=== PATIENT | male | born 1965 | race Caucasian/White ===

== ENCOUNTER 2020-02-14 11:32 | Emergency (ER) | payer MEDICARE, MEDICAID ==
[~2020-02-14] VITALS: Ht 177.8 cm; Wt 92.0 kg
[2020-02-14] MEDS ORDERED: HYDROcodone/acetaminophen 5mg/325mg tablet PO ONE (14:05)
[2020-02-14 14:16] LABS: BASOPHILS % (AUTO) 0.5 % (0-1); EOSINOPHILS % (AUTO) 0.7 % (0-6); HEMATOCRIT 24.4 % (42.0-52.0); HEMOGLOBIN 8.2 g/dl (14.0-17.9); LYMPHOCYTES # (AUTO) 0.8 X10'3 (1.1-4.8); MEAN CORPUSCULAR HEMOGLOBIN 33.3 PG (27.0-31.0); MEAN CORPUSCULAR HGB CONC 33.8 g/dL (33.0-36.5); MEAN CORPUSCULAR VOLUME 98.6 FL (78-98); MEAN PLATELET VOLUME 6.9 FL (7.4-10.4); MONOCYTES # (AUTO) 0.7 X10'3 (0-0.9); MONOCYTES % (AUTO) 11.4 % (2-12); NEUTROPHILS # (AUTO) 4.8 X10'3 (1.8-7.7); NEUTROPHILS % (AUTO) 74.4 % (42-75); PLATELET COUNT 266 X10'3 (140-440); RED BLOOD COUNT 2.48 X10'6 (4.70-6.10); RED CELL DISTRIBUTION WIDTH 14.8 % (11.5-14.5); WHITE BLOOD COUNT 6.5 X10'3 (4.5-11.0)
[2020-02-14 14:38] LABS: ALANINE AMINOTRANSFERASE 27 U/L (12-78); ALBUMIN 2.9 G/DL (3.4-5.0); ALBUMIN/GLOBULIN RATIO 0.8 (1.1-1.5); ALKALINE PHOSPHATASE 75 IU/L (46-116); ANION GAP 12 (8-16); ASPARTATE AMINO TRANSFERASE 17 U/L (10-37); BILIRUBIN,TOTAL 1.1 MG/DL (0.1-1.0); BLOOD UREA NITROGEN 57 MG/DL (7-18); BUN/CREATININE RATIO 6.4 (5.4-32.0); CALCIUM 9.1 MG/DL (8.5-10.1); CHLORIDE 104 MMOL/L (99-107); CREATININE 8.85 MG/DL (0.60-1.10); GLUCOSE 86 MG/DL (70-104); POTASSIUM 3.6 MMOL/L (3.5-5.1); SODIUM 140 MMOL/L (135-145); TOTAL CARBON DIOXIDE 24.3 MMOL/L (24-32); TOTAL PROTEIN 6.7 G/DL (6.4-8.2); eGFR 6 ML/MIN
[2020-02-14] MEDS ORDERED: HYDR-4383 PO (16:01)
[2020-02-14 16:26] VITALS: BP 148/103
== END 2020-02-14 16:10 | disposition home or self-care (01) ==
LOC: ER 11:34
DX: S70.12XA Contusion of left thigh, initial encounter (principal); I48.91 Unspecified atrial fibrillation; Z88.0 Allergy status to penicillin; Z79.899 Other long term (current) drug therapy; X58.XXXA Exposure to other specified factors, initial encounter; Y93.89 Activity, other specified; Y92.89 Other specified places as the place of occurrence of the external cause; Y99.8 Other external cause status
CPT/HCPCS: 36415; 73700; 80053; 85025; 85610; 99284

== ENCOUNTER 2021-02-19 17:03 | Emergency (ER) | payer MEDICARE, MEDICAID ==
[~2021-02-19] VITALS: Ht 177.8 cm; Wt 84.8 kg
[~2021-02-19 17:03] MED LIST: HYDR-4383 PO
[2021-02-19 17:19] VITALS: BP 128/84
== END 2021-02-19 17:43 | disposition home or self-care (01) ==
LOC: ER 17:03
DX: S00.412A Abrasion of left ear, initial encounter (principal); I48.91 Unspecified atrial fibrillation; Z88.0 Allergy status to penicillin; Z79.899 Other long term (current) drug therapy; X58.XXXA Exposure to other specified factors, initial encounter; Y93.89 Activity, other specified; Y92.89 Other specified places as the place of occurrence of the external cause; Y99.8 Other external cause status
CPT/HCPCS: 99281

== ENCOUNTER 2021-12-07 14:02 | Day surgery (SDC) | payer MEDICARE, MEDICAID ==
[2021-12-04 11:01] LABS: BASOPHILS % (AUTO) 0.8 % (0-1); EOSINOPHILS # (AUTO) 0.1 X10'3 (0-0.9); HEMATOCRIT 46.7 % (42.0-52.0); HEMOGLOBIN 15.7 g/dl (14.0-17.9); LYMPHOCYTES % (AUTO) 16.8 % (21-51); MEAN CORPUSCULAR HEMOGLOBIN 32.4 PG (27.0-31.0); MEAN CORPUSCULAR HGB CONC 33.7 g/dL (33.0-36.5); MEAN CORPUSCULAR VOLUME 96.3 FL (78-98); MEAN PLATELET VOLUME 6.9 FL (7.4-10.4); MONOCYTES # (AUTO) 0.9 X10'3 (0-0.9); MONOCYTES % (AUTO) 14.9 % (2-12); NEUTROPHILS # (AUTO) 3.8 X10'3 (1.8-7.7); NEUTROPHILS % (AUTO) 65.5 % (42-75); PLATELET COUNT 228 X10'3 (140-440); RED BLOOD COUNT 4.85 X10'6 (4.70-6.10); RED CELL DISTRIBUTION WIDTH 16.3 % (11.5-14.5); WHITE BLOOD COUNT 5.8 X10'3 (4.5-11.0)
[2021-12-04 11:13] LABS: APTT 33 SECONDS (22-32)
[2021-12-04 11:32] LABS: ALBUMIN 3.9 G/DL (3.4-5.0); ANION GAP 12 (8-16); BLOOD UREA NITROGEN 44 MG/DL (7-18); BUN/CREATININE RATIO 5.8 (5.4-32.0); CALCIUM 8.9 MG/DL (8.5-10.1); CHLORIDE 98 MMOL/L (99-107); CHOL/HDL RATIO 2.4 (0.00-4.99); CHOLESTEROL 190 MG/DL (0-200); GLUCOSE 94 MG/DL (70-104); HDL CHOLESTEROL 79 MG/DL (35-60); LDL CHOLESTEROL 62 MG/DL (50-100); POTASSIUM 5.9 MMOL/L (3.5-5.1); SODIUM 137 MMOL/L (135-145); TRIGLYCERIDES 135 MG/DL (20-135); eGFR 7 ML/MIN
[2021-12-07] VITALS (11 sets, daily range): BP systolic 134–162; BP diastolic 73–96
[~2021-12-07] VITALS: Ht 177.8 cm; Wt 91.2 kg
[2021-12-07] MEDS ORDERED: AMIO200T61 (14:43)
[2021-12-07] MEDS ORDERED: PHO667C (14:43)
[2021-12-07] MEDS ORDERED: CYCL-1 PO (14:43)
[2021-12-07] MEDS ORDERED: ATOR40TA72 PO (14:43)
[2021-12-07] MEDS ORDERED: WARF4TAB69 PO (14:43)
[2021-12-07] MEDS ORDERED: FURO80TA3 PO (14:43)
[2021-12-07] MEDS ORDERED: OMEP20CA15 PO (14:44)
[2021-12-07] MEDS ORDERED: Vitamin D (14:44)
[2021-12-07 15:11] LABS: BASOPHILS % (AUTO) 0.8 % (0-1); EOSINOPHILS # (AUTO) 0.1 X10'3 (0-0.9); EOSINOPHILS % (AUTO) 2.9 % (0-6); HEMATOCRIT 42.5 % (42.0-52.0); HEMOGLOBIN 14.4 g/dl (14.0-17.9); LYMPHOCYTES # (AUTO) 0.9 X10'3 (1.1-4.8); LYMPHOCYTES % (AUTO) 20.2 % (21-51); MEAN CORPUSCULAR HEMOGLOBIN 32.6 PG (27.0-31.0); MEAN CORPUSCULAR HGB CONC 33.8 g/dL (33.0-36.5); MEAN CORPUSCULAR VOLUME 96.4 FL (78-98); MEAN PLATELET VOLUME 7.1 FL (7.4-10.4); MONOCYTES # (AUTO) 0.6 X10'3 (0-0.9); MONOCYTES % (AUTO) 14.1 % (2-12); NEUTROPHILS # (AUTO) 2.7 X10'3 (1.8-7.7); PLATELET COUNT 182 X10'3 (140-440); RED BLOOD COUNT 4.41 X10'6 (4.70-6.10); RED CELL DISTRIBUTION WIDTH 16.5 % (11.5-14.5); WHITE BLOOD COUNT 4.3 X10'3 (4.5-11.0)
[2021-12-07 15:20] LABS: ALBUMIN 3.6 G/DL (3.4-5.0); ANION GAP 17 (8-16); BLOOD UREA NITROGEN 86 MG/DL (7-18); BUN/CREATININE RATIO 8.9 (5.4-32.0); CALCIUM 8.5 MG/DL (8.5-10.1); CHLORIDE 100 MMOL/L (99-107); CREATININE 9.63 MG/DL (0.60-1.10); GLUCOSE 85 MG/DL (70-104); POTASSIUM 5.7 MMOL/L (3.5-5.1); SODIUM 139 MMOL/L (135-145); TOTAL CARBON DIOXIDE 22.3 MMOL/L (24-32); eGFR 6 ML/MIN
[2021-12-07 15:21] LABS: APTT 31 SECONDS (22-32)
[2021-12-07] MEDS ORDERED: diphenhydrAMINE 25mg capsule PO ONE (15:25)
[2021-12-07] MEDS ORDERED: LORazepam 0.5 MG tablet PO SCH (15:25)
[2021-12-07] MEDS ORDERED: nitroGLYCERIN-Tridil 50MG/D5W 250 ML IV ONE (16:29)
[2021-12-07] MEDS ORDERED: verapamil 2.5 mg/ml inj IV ONE (16:29)
[2021-12-07] MEDS ORDERED: LIDOcaine 1% (10mg/ml) 2ml vial ONE (16:30)
[2021-12-07] MEDS ORDERED: diphenhydrAMINE 25mg capsule PO PRN (16:30)
[2021-12-07] MEDS ORDERED: heparin 1,000unit/ml 10ml vial 10 ML ONE (16:30)
[2021-12-07] MEDS ORDERED: fentaNYL/PF 50MCG/1 ML 2ML syringe ONE (16:30)
[2021-12-07] MEDS ORDERED: LORazepam 0.5 MG tablet PO PRN (16:30)
[2021-12-07] MEDS ORDERED: midazolam 1 mg/ML 2ml injection ONE (16:30)
[2021-12-07] MEDS ORDERED: iohexol 350MG/ML 100ml bottle IV ONE ×2 (16:30→18:20)
[2021-12-07] MEDS ORDERED: normal saline 1,000 ML IV SCH (16:30)
[2021-12-07] MEDS ORDERED: aspirin 325mg tablet ONE (18:21)
[2021-12-07] MEDS ORDERED: clopidogrel 300mg tablet ONE (18:21)
[2021-12-07] MEDS ORDERED: pantoprazole 40mg Tablet.DR PO SCH (19:05)
--- NOTE | 2021-12-07 19:05 | NUR ---
New order from Dr. Destiny Street for protonix 40 mg PO once.
[2021-12-07] MEDS ORDERED: HYDROcodone/acetaminophen 5mg/325mg tablet PO PRN (23:05)
[2021-12-07] MEDS ORDERED: HYDROcodone/acetaminophen 10/325mg tab PO PRN (23:05)
== END 2021-12-07 21:15 | disposition home or self-care (01) ==
LOC: SSTAY O 14:02
PROVIDERS: ATTEND Internal Medicine Interventional Cardiology
DX: I25.10 Atherosclerotic heart disease of native coronary artery without angina pectoris (principal); N18.9 Chronic kidney disease, unspecified; I48.91 Unspecified atrial fibrillation; I08.3 Combined rheumatic disorders of mitral, aortic and tricuspid valves; E78.5 Hyperlipidemia, unspecified; I10 Essential (primary) hypertension; Z79.01 Long term (current) use of anticoagulants; Z79.899 Other long term (current) drug therapy; E66.01 Morbid (severe) obesity due to excess calories; Z88.0 Allergy status to penicillin; Z99.2 Dependence on renal dialysis; Z98.890 Other specified postprocedural states
CPT/HCPCS: 36415; 80048; 80061; 85025; 85610; 85730; 93005; 93458; 99152; 99153; C1725; C1751; C1769; C1874; C1894; C9600; J1644; J2250; J3010; J3490; J7030; Q0163; Q9967; A4620; A5120; A6258; A6402

== ENCOUNTER 2023-03-31 11:00 | Emergency (ER) | payer MEDICARE, MEDICAID ==
[~2023-03-31] VITALS: Ht 177.8 cm; Wt 103.0 kg
[~2023-03-31 11:00] MED LIST changes: +AMI200T; +ATOR40TA72 PO; +CYCL-1 PO; +FURO80TA3 PO; -HYDR-4383 PO; +OMEP20CA15 PO; +PHO667C; +Vitamin D; +WARF4TAB69 PO
[2023-03-31 11:46] LABS: BASOPHILS % (AUTO) 0.8 % (0-1); EOSINOPHILS # (AUTO) 0.3 X10'3 (0-0.9); EOSINOPHILS % (AUTO) 6.2 % (0-6); HEMATOCRIT 44.1 % (42.0-52.0); HEMOGLOBIN 14.9 g/dl (14.0-17.9); LYMPHOCYTES # (AUTO) 0.8 X10'3 (1.1-4.8); MEAN CORPUSCULAR HEMOGLOBIN 34.6 PG (27.0-31.0); MEAN CORPUSCULAR HGB CONC 33.8 g/dL (33.0-36.5); MEAN CORPUSCULAR VOLUME 102.4 FL (78-98); MONOCYTES % (AUTO) 18.4 % (2-12); NEUTROPHILS # (AUTO) 3.3 X10'3 (1.8-7.7); NEUTROPHILS % (AUTO) 59.6 % (42-75); PLATELET COUNT 224 X10'3 (140-440); RED BLOOD COUNT 4.31 X10'6 (4.70-6.10); RED CELL DISTRIBUTION WIDTH 18.4 % (11.5-14.5); WHITE BLOOD COUNT 5.5 X10'3 (4.5-11.0)
[2023-03-31 11:51] LABS: BILIRUBIN,URINE NEGATIVE (Neg); CLARITY,URINE CLEAR (Clear); COLOR,URINE YELLOW (Yellow); GLUCOSE, URINE NEGATIVE (Neg); KETONES,URINE NEGATIVE (Neg); LEUKOCYTE ESTERASE ,URINE NEGATIVE (Neg); NITRITES, URINE NEGATIVE (Neg); OCCULT BLOOD,URINE TRACE-INTACT (Neg); PROTEIN,URINE 100 mg/dl (Neg); UROBILINOGEN,URINE 0.2 E.U/dL (0.2-1.0)
[2023-03-31 12:07] LABS: ALANINE AMINOTRANSFERASE 25 U/L (12-78); ALBUMIN 3.5 G/DL (3.4-5.0); ALBUMIN/GLOBULIN RATIO 0.9 (1.1-1.5); ALKALINE PHOSPHATASE 100 IU/L (46-116); ANION GAP 15 (8-16); ASPARTATE AMINO TRANSFERASE 16 U/L (10-37); BILIRUBIN,TOTAL 0.5 MG/DL (0.1-1.0); BLOOD UREA NITROGEN 60 MG/DL (7-18); BUN/CREATININE RATIO 5.3 (10.0-20.0); CALCIUM 9.6 MG/DL (8.5-10.1); CHLORIDE 96 MMOL/L (99-107); GLUCOSE 85 MG/DL (70-104); LIPASE 39 U/L (16-77); POTASSIUM 5.9 MMOL/L (3.5-5.1); SODIUM 137 MMOL/L (135-145); TOTAL CARBON DIOXIDE 25.9 MMOL/L (24-32); TOTAL PROTEIN 7.3 G/DL (6.4-8.2); eCRCL 7 ML/MIN; eGFR 5 ML/MIN
[2023-03-31 12:10] LABS: TOTAL CELLS COUNTED 100
[2023-03-31 12:11] LABS: ANISOCYTOSIS 2+; LARGE PLATELETS FEW; PLATELET ESTIMATE NORMAL
[2023-03-31 12:13] LABS: UA COLLECTION TYPE CLN CATCH MIDSTREAM
[2023-03-31 12:21] LABS: BACTERIA,URINE NONE SEEN /HPF (Neg); MUCUS STRANDS NONE SEEN /LPF (Neg); RBC,URINE 0-2 /HPF (0-2); SQUAMOUS EPITHELIAL CELL,UR FEW /LPF (FEW); WBC,URINE 0-4 /HPF (0-4)
[2023-03-31 13:42] VITALS: TEMP 97.5
[2023-03-31] MEDS ORDERED: acetaminophen 325mg tablet PO ONE (14:45)
[2023-03-31 14:57] VITALS: BP 155/90; PULSE 54; RESP 18; O2SAT 97
== END 2023-03-31 15:03 | disposition home or self-care (01) ==
LOC: ER 11:00
DX: E87.6 Hypokalemia (principal); N18.9 Chronic kidney disease, unspecified; I11.0 Hypertensive heart disease with heart failure; Z88.0 Allergy status to penicillin; Z79.899 Other long term (current) drug therapy
CPT/HCPCS: 80053; 81001; 83690; 85007; 85025; 93005; 99285

== ENCOUNTER 2023-11-08 12:36 | Day surgery (SDC) | payer MEDICARE, MEDICAID ==
[2023-11-04 17:18] LABS: EOSINOPHILS # (AUTO) 0.1 X10'3 (0-0.9); HEMOGLOBIN 13.4 g/dl (14.0-17.9)
[2023-11-04 17:19] LABS: APTT 40 SECONDS (22-32); INR 1.9 INR
[2023-11-04 17:20] LABS: ALBUMIN 3.4 G/DL (3.4-5.0); ANION GAP 9 (8-16); BASOPHILS % (AUTO) 0.7 % (0-1); BLOOD UREA NITROGEN 44 MG/DL (7-18); BUN/CREATININE RATIO 5.8 (10.0-20.0); CALCIUM 9.8 MG/DL (8.5-10.1); CHLORIDE 99 MMOL/L (99-107); CHOL/HDL RATIO 2.4 (0.00-4.99); CHOLESTEROL 146 MG/DL (0-200); CREATININE 7.58 MG/DL (0.60-1.10); EOSINOPHILS % (AUTO) 2.1 % (0-6); GLUCOSE 92 MG/DL (70-104); HDL CHOLESTEROL 62 MG/DL (35-60); HEMATOCRIT 39.9 % (42.0-52.0); LDL CHOLESTEROL 54 MG/DL (50-100); LYMPHOCYTES % (AUTO) 16.6 % (21-51); MEAN CORPUSCULAR HEMOGLOBIN 33.5 PG (27.0-31.0); MEAN CORPUSCULAR HGB CONC 33.6 g/dL (33.0-36.5); MEAN CORPUSCULAR VOLUME 99.7 FL (78-98); MEAN PLATELET VOLUME 6.8 FL (7.4-10.4); MONOCYTES # (AUTO) 1.2 X10'3 (0-0.9); MONOCYTES % (AUTO) 20.6 % (2-12); NEUTROPHILS # (AUTO) 3.6 X10'3 (1.8-7.7); PLATELET COUNT 269 X10'3 (140-440); POTASSIUM 3.6 MMOL/L (3.5-5.1); SODIUM 138 MMOL/L (135-145); TOTAL CARBON DIOXIDE 30.3 MMOL/L (24-32); TRIGLYCERIDES 135 MG/DL (20-135); eGFR 7 ML/MIN
[2023-11-04 18:52] LABS: PLATELET ESTIMATE NORMAL; TOTAL CELLS COUNTED 100
[~2023-11-08] VITALS: Ht 177.8 cm; Wt 99.7 kg
[2023-11-08] VITALS (9 sets, daily range): BP systolic 192–210; BP diastolic 108–125; PULSE 72–94; RESP 16; TEMP 97.8; O2SAT 93–97
[~2023-11-08 12:36] MED LIST changes: +LIDOcaine 1% (10mg/ml) 2ml vial ONE; +fentaNYL/PF 50MCG/1 ML 2ML syringe ONE; +heparin 1,000unit/ml 10ml vial 10 ML ONE; +iohexol 350MG/ML 100ml bottle IV ONE; +midazolam 1 mg/ML 2ml injection ONE; +nitroGLYCERIN 500mcg/5mL D5W 5 ML IV ONE; +verapamil 2.5 mg/ml inj IV ONE
[2023-11-08] MEDS ORDERED: LORazepam 0.5 MG tablet PO PRN (12:55)
[2023-11-08] MEDS ORDERED: normal saline 1,000 ML IV SCH (12:55)
[2023-11-08] MEDS ORDERED: WARF-55 PO (13:00)
[2023-11-08] MEDS: diphenhydrAMINE 25mg capsule PO PRN (13:24)
[2023-11-08 13:34] LABS: INR 1.2 INR; PROTHROMBIN TIME 12.8 SECONDS (9.0-12.0)
[2023-11-08] MEDS ORDERED: iohexol 350 MG/ML 50ML vial IV ONE (14:08)
[2023-11-08] MEDS ORDERED: HYDROcodone/acetaminophen 10/325mg tab PO PRN (14:45)
[2023-11-08] MEDS: HYDROcodone/acetaminophen 5mg/325mg tablet PO PRN (16:12)
== END 2023-11-08 16:26 | disposition home or self-care (01) ==
LOC: SSTAY O 12:36
PROVIDERS: ATTEND Student in an Organized Health Care Education/Training Program
DX: I25.10 Atherosclerotic heart disease of native coronary artery without angina pectoris (principal); I12.0 Hypertensive chronic kidney disease with stage 5 chronic kidney disease or end stage renal disease; N18.6 End stage renal disease; E78.5 Hyperlipidemia, unspecified; Z99.2 Dependence on renal dialysis
CPT/HCPCS: 36415; 80048; 80061; 85025; 85610; 85730; 93005; 93458; 99152; A6258; A6402; C1894; J1644; J2001; J2250; J3010; J3490; J7030; Q0163; Q9967; Z7610; 85007; 99153

== ENCOUNTER 2024-01-03 14:35 | Emergency (ER) | payer MEDICARE, MEDICAID ==
[~2024-01-03] VITALS: Ht 170.2 cm; Wt 86.4 kg
[~2024-01-03 14:35] MED LIST changes: -LIDOcaine 1% (10mg/ml) 2ml vial ONE; -OMEP20CA15 PO; -Vitamin D; +WARF-55 PO; -WARF4TAB69 PO; -fentaNYL/PF 50MCG/1 ML 2ML syringe ONE; -heparin 1,000unit/ml 10ml vial 10 ML ONE; -iohexol 350MG/ML 100ml bottle IV ONE; -midazolam 1 mg/ML 2ml injection ONE; -nitroGLYCERIN 500mcg/5mL D5W 5 ML IV ONE; -verapamil 2.5 mg/ml inj IV ONE
[2024-01-03 14:39] VITALS: TEMP 98.7
[2024-01-03 14:56] LABS: BASOPHILS % (AUTO) 0.5 % (0-1); EOSINOPHILS % (AUTO) 0.6 % (0-6); HEMATOCRIT 36.6 % (42.0-52.0); HEMOGLOBIN 12.8 g/dl (14.0-17.9); LYMPHOCYTES # (AUTO) 0.6 X10'3 (1.1-4.8); LYMPHOCYTES % (AUTO) 15.6 % (21-51); MEAN CORPUSCULAR HGB CONC 34.9 g/dL (33.0-36.5); MEAN CORPUSCULAR VOLUME 94.4 FL (78-98); MEAN PLATELET VOLUME 6.9 FL (7.4-10.4); MONOCYTES # (AUTO) 0.6 X10'3 (0-0.9); NEUTROPHILS # (AUTO) 2.7 X10'3 (1.8-7.7); NEUTROPHILS % (AUTO) 68.3 % (42-75); PLATELET COUNT 194 X10'3 (140-440); RED BLOOD COUNT 3.88 X10'6 (4.70-6.10); RED CELL DISTRIBUTION WIDTH 15.7 % (11.5-14.5)
[2024-01-03 15:14] LABS: ALBUMIN 2.9 G/DL (3.4-5.0); ANION GAP 8 (8-16); BLOOD UREA NITROGEN 24 MG/DL (7-18); BUN/CREATININE RATIO 4.9 (10.0-20.0); CALCIUM 9.1 MG/DL (8.5-10.1); CHLORIDE 100 MMOL/L (99-107); CREATININE 4.94 MG/DL (0.60-1.10); GLUCOSE 93 MG/DL (70-104); POTASSIUM 3.1 MMOL/L (3.5-5.1); PRO BRAIN NATRIURETIC PEPTIDE 6372 PG/ML (0-125); SODIUM 138 MMOL/L (135-145); TOTAL CARBON DIOXIDE 29.9 MMOL/L (24-32); eCRCL 15 ML/MIN; eGFR 12 ML/MIN
[2024-01-03 15:20] VITALS: BP 166/99; PULSE 82; RESP 16; O2SAT 98
== END 2024-01-03 15:37 | disposition left against medical advice (07) ==
LOC: ER 14:36
DX: R07.89 Other chest pain (principal); I48.91 Unspecified atrial fibrillation; I25.10 Atherosclerotic heart disease of native coronary artery without angina pectoris; Z88.0 Allergy status to penicillin; Z79.899 Other long term (current) drug therapy
CPT/HCPCS: 36415; 71045; 80048; 83880; 84484; 85025; 93005; 99285

== ENCOUNTER 2024-10-25 04:31 | Emergency (ER) | payer MEDICARE, MEDICAID ==
[~2024-10-25] VITALS: Ht 177.8 cm; Wt 79.9 kg
[2024-10-25 04:33] VITALS: BP 152/87; PULSE 65; RESP 15; TEMP 93.8; O2SAT 99
== END 2024-10-25 07:35 | disposition left against medical advice (07) ==
LOC: ER 04:32
DX: S61.452A Open bite of left hand, initial encounter (principal); Z88.0 Allergy status to penicillin; W55.01XA Bitten by cat, initial encounter; Y93.89 Activity, other specified; Y92.89 Other specified places as the place of occurrence of the external cause; Y99.8 Other external cause status; Z53.21 Procedure and treatment not carried out due to patient leaving prior to being seen by health care provider

== ENCOUNTER 2024-10-31 16:40 | Inpatient (IN) | payer MEDICARE, MEDICAID ==
[~2024-10-31] VITALS: Ht 177.8 cm; Wt 92.8 kg
[2024-10-31 17:16] LABS: BASOPHILS # (AUTO) 0.1 X10'3 (0-0.2); BASOPHILS % (AUTO) 1.3 % (0-1); EOSINOPHILS # (AUTO) 0.3 X10'3 (0-0.9); EOSINOPHILS % (AUTO) 4.9 % (0-6); HEMOGLOBIN 12.8 g/dl (14.0-17.9); LYMPHOCYTES # (AUTO) 0.7 X10'3 (1.1-4.8); LYMPHOCYTES % (AUTO) 13.1 % (21-51); MEAN CORPUSCULAR HEMOGLOBIN 34.4 PG (27.0-31.0); MEAN CORPUSCULAR HGB CONC 33.7 g/dL (33.0-36.5); MEAN PLATELET VOLUME 6.7 FL (7.4-10.4); MONOCYTES % (AUTO) 18.8 % (2-12); NEUTROPHILS # (AUTO) 3.2 X10'3 (1.8-7.7); NEUTROPHILS % (AUTO) 61.9 % (42-75); PLATELET COUNT 253 X10'3 (140-440); RED BLOOD COUNT 3.73 X10'6 (4.70-6.10); RED CELL DISTRIBUTION WIDTH 18.8 % (11.5-14.5); WHITE BLOOD COUNT 5.2 X10'3 (4.5-11.0)
[2024-10-31 17:22] LABS: ALBUMIN 2.9 G/DL (3.4-5.0); ANION GAP 16 (8-16); BLOOD UREA NITROGEN 59 MG/DL (7-18); BUN/CREATININE RATIO 6.3 (10.0-20.0); CALCIUM 9.9 MG/DL (8.5-10.1); CHLORIDE 99 MMOL/L (99-107); CREATININE 9.37 MG/DL (0.60-1.10); GLUCOSE 80 MG/DL (70-104); POTASSIUM 4.8 MMOL/L (3.5-5.1); SODIUM 142 MMOL/L (135-145); TOTAL CARBON DIOXIDE 27.5 MMOL/L (24-32); eCRCL 9 ML/MIN; eGFR 6 ML/MIN
--- NOTE | 2024-10-31 18:01 | Physician Documentation ---
History of Present Illness ~ Chief Complaint: Bite-animal Stated Complaint: HAND SWELLING Time Seen by MD: 18:01 Primary Medical Doctor: [facility] HPI Patient presents to the emergency room with cat bite to his left hand that has happened a proximally one-week ago. He was placed on doxycycline however symptoms have worsened and he is having significant pain. He reports compliance with his antibiotic. No fevers. Tetanus within 5 years?: No Medication Reconciliation Allergies: Coded Allergies: Penicillins (Unverified Allergy, Unknown, 10/31/24) Scheduled Atorvastatin Calcium (Atorvastatin Calcium), 1 TAB PO DAILY, (Reported) Furosemide (Furosemide), 1 TAB PO QID/4X'sweekly, (Reported) Warfarin Sodium (Warfarin Sodium), 1 TAB PO DAILY, (Reported) Warfarin Sodium (Warfarin Sodium), 1 TAB PO DAILY, (Reported) Scheduled PRN Cyclobenzaprine* (Cyclobenzaprine*), 1 TAB PO BID PRN for muscle spasm, (Reported) Miscellaneous Medications Amiodarone Hcl (Cordarone), (Reported) Calcium Acetate (Calcium Acetate), (Reported) Warfarin Sodium (Warfarin Sodium), (Reported) Past Medical History Past Medical History: Atrial Fibrillation, Coronary Artery Disease, Myocardial Infarction, Dialysis, Renal Disease Past Surgical History: noncontributory Alcohol Use: None Drug Use: none Lives In: Home Review of Systems ROS All review of systems negative except as per HPI Physical Exam Vital Signs: Temperature: 98.1, Source: Temporal, Heart Rate: 71, Respiratory Rate: 16, BP: 181/105, Pulse Oximetry: 99, Weight: 92.800 Oxygen Flow Rate: 0 Physical Exam General: Patient is awake, alert, oriented x4 in mild distress Head: Normocephalic and atraumatic. Eyes: Conjunctival normal. EOMI. PERRL. ENT: Mucous membranes moist. Neck: Supple, trachea is midline. Chest: Clear to auscultation bilaterally without rales, rhonchi, or wheezes. There is no accessory muscle use or retractions. Cardiac: RRR without murmurs, gallops, or rubs. Extremities: Cellulitis noted to the dorsum of left hand. Fistula is functioning on left forearm normally. Progress Results/Orders Results/Orders Orders - SERGIO GILLIAM MD Ct Upper Extremities (10/31/24 18:35) Page Hospitalist (10/31/24 18:25) Fill Out Med Reconciliation (10/31/24 18:25) Completed Orders - SERGIO GILLIAM MD Normal Saline 1000ml (Sodium Chloride 10 (10/31/24 18:05) Vancomycin Inj (Vancomycin Inj) (10/31/24 18:04) Ceftriaxone 2gm/D5w 50ml Bag (Rocephin 2 (10/31/24 18:05) Metronidazole-Flagyl 500mg/Ns (Flagyl 50 (10/31/24 18:04) Ondansetron Inj. (Zofran 4mg/2ml Vial) (10/31/24 18:10) Morphine 4mg/Ml Inj. (Morphine Inj.) (10/31/24 18:10) Vancomycin/Ns 1 Gm Add-[place] (Vancomyc (10/31/24 18:12) Ct Upper Extremities (10/31/24 18:35) Morphine 4mg/Ml Inj. (Morphine Inj.) (10/31/24 20:55) Acetaminophen 1,000mg/100ml Iv (Ofirmev (10/31/24 20:55) Medications Received in ER Medications (Trade) Dose Ordered Sig/Nasir Route PRN Reason Start Time Stop Time Status Last Admin Dose Admin Sodium Chloride 1,000 ml @ 1,000 mls/hr ONCE ONCE IV 10/31/24 18:05 10/31/24 19:04 DC 10/31/24 18:34 1,000 MLS/HR Ceftriaxone Sodium/Dextrose 50 ml @ 100 mls/hr ONCE ONCE IV 10/31/24 18:05 10/31/24 18:34 DC 10/31/24 18:34 100 MLS/HR Metronidazole/ Sodium Chloride 100 ml @ 100 mls/hr ONCE STAT IV 10/31/24 18:04 10/31/24 19:03 DC 10/31/24 18:35 100 MLS/HR (Zofran 4mg/2ml vial) 4 mg ONCE ONCE IV 10/31/24 18:10 10/31/24 18:11 DC 10/31/24 18:34 4 MG (morphine inj.) 4 mg ONCE ONCE IV 10/31/24 18:10 10/31/24 18:11 DC 10/31/24 18:33 4 MG Vancomycin HCl 250 ml @ 166 mls/hr ONCE STAT IV 10/31/24 18:12 10/31/24 19:34 DC 10/31/24 19:26 166 MLS/HR (morphine inj.) 4 mg ONCE ONCE IV 10/31/24 20:55 10/31/24 20:58 DC 10/31/24 21:14 4 MG Acetaminophen 100 ml @ 400 mls/hr ONCE ONCE IV 10/31/24 20:55 10/31/24 21:09 DC 10/31/24 21:13 400 MLS/HR Vital Signs 10/31/24 10/31/24 10/31/24 10/31/24 16:44 16:57 18:33 18:41 Temp 98.1 Pulse 71 83 Resp 18 16 14 18 B/P (MAP) 181/105 109/71 (84) Pulse Ox 99 99 O2 Flow Rate 0 0 10/31/24 10/31/24 10/31/24 10/31/24 18:46 19:16 21:14 21:18 Temp 98.1 Pulse 80 68 Resp 18 18 16 18 B/P (MAP) 160/96 (117) 170/113 (132) Pulse Ox 99 99 O2 Flow Rate 0 0 Laboratory Tests Test 10/31/24 17:03 White Blood Count 5.2 Red Blood Count 3.73 L Hemoglobin 12.8 L Hematocrit 38.0 L Mean Corpuscular Volume 102.0 H Mean Corpuscular Hemoglobin 34.4 H Mean Corpuscular Hemoglobin Concent 33.7 Red Cell Distribution Width 18.8 H Platelet Count 253 Mean Platelet Volume 6.7 L Neutrophils (%) (Auto) 61.9 Lymphocytes (%) (Auto) 13.1 L Monocytes (%) (Auto) 18.8 H Eosinophils (%) (Auto) 4.9 Basophils (%) (Auto) 1.3 H Neutrophils # (Auto) 3.2 Lymphocytes # (Auto) 0.7 L Monocytes # (Auto) 1.0 H Eosinophils # (Auto) 0.3 Basophils # (Auto) 0.1 CBC Comment Differential Total Cells Counted 100 Neutrophils % (Manual) 67.0 Lymphocytes % (Manual) 15.0 L Monocytes % (Manual) 14.0 H Eosinophils % (Manual) 4.0 Platelet Estimate Normal Red Blood Cell Morphology Perf Basophilic Stippling Anisocytosis 2+ Macrocytosis 1+ Sodium Level 142 Potassium Level 4.8 Chloride Level 99 Carbon Dioxide Level 27.5 Anion Gap 16 Blood Urea Nitrogen 59 H Creatinine 9.37 H Estimated GFR/1.73 m2 6 BUN/Creatinine Ratio 6.3 L Glucose Level 80 Lactic Acid Level 1.1 Calcium Level 9.9 Albumin 2.9 L Procalcitonin 1.02 H Chemistry Comments Microbiology Date/Time Source Procedure Growth Status 10/31/24 19:21 Blood Hand Right Blood Culture - Preliminary NEGATIVE (LESS THAN 24 HOURS) Resulted Medical Decision Making Findings Patient presented to the emergency room for evaluation of infected cat bite. He reports compliance with his antibiotics with worsening of symptoms. I feel he has failed outpatient attempts at treatment. IV antibiotics initiated. CT scan is negative for abscess. Differential Dx:Considerations: Include: Cellulitis, Fracture, Hematoma, Laceration, Punture wound, Retained foreign body Departure Admitted to Inpatient Unit: yes, to hospitalist Impression: Primary Impression: Cat bite Additional Impression: Cellulitis Condition: Guarded Referrals: NO PRIMARY CARE PROVIDER (PCP) Signature Scribe Signature: No scribe Attestation: The note accurately reflects work and decisions made by me.Sergio Gilliam MD 10/31/24 22:49 SERGIO GILLIAM MD Oct 31, 2024 18:01
[2024-10-31 18:04] LABS: TOTAL CELLS COUNTED 100
[2024-10-31] MEDS ORDERED: vancomycin inj 1,000 MG in normal saline 250ml IV soln 250 ML IV STA (18:04)
[2024-10-31 18:06] LABS: ANISOCYTOSIS 2+; PLATELET ESTIMATE NORMAL
[2024-10-31] MEDS: morphine 4 MG/ML inj SYRINge IV ONE ×2 (18:33→21:14)
[2024-10-31] MEDS: CefTRIAXone 2gm/D5W 50ml BAG 50 ML IV ONE (18:34)
[2024-10-31] MEDS: normal saline 1000ml 1,000 ML IV ONE (18:34)
[2024-10-31] MEDS: ondansetron/PF 4mg/2ml inj IV ONE (18:34)
[2024-10-31] MEDS: metroNIDAZOLE-Flagyl 500mg/NS 100 ML IV STA (18:35)
[2024-10-31] MEDS ORDERED: WARF4TAB69 PO (18:59)
[2024-10-31] MEDS ORDERED: WARF1TAB83 (18:59)
[2024-10-31] MEDS: vancomycin/NS 1 GM ADD-VANTAGE 250 ML IV STA (19:26)
--- NOTE | 2024-10-31 20:55 | RADIOLOGY REPORT ---
Procedure: CT CT UPPER EXTREMITIES 10/31/2024 06:44 PM Indication: cat bite on LEFT hand 1 week ago. Severe pain. Swelling. Comparison Study: None Technique: Multidetector spiral CT of the left wrist and hand was performed. Radiation Dose : CTDIvol 3 mGy, DLP 109 mGy*cm. FINDINGS: Evaluation is suboptimal in the absence of intravenous contrast. There is a radiocephalic arterioveno us dialysis fistula. There is a 2.1 x 1.2 cm discoid lesion within the hypothenar eminence with some peripheral calcification and appears associated with a vein and likely represents a venous varicosity . There is mild edema in the subcutaneous soft tissues of the hand and distal forearm. No abscess is identified within the limitations of this noncontrast study. The osseous structures are within normal limits. IMPRESSION: Mild diffuse subcutaneous edema without evidence of abscess within the limitations of this noncontras t study. A 2.1 cm discoidal structure within the hypothenar eminence likely represents a venous varicosity but this is suboptimally evaluated in the absence of intravenous contrast. If clinically indicated, consider repeat CT with contrast or obtain MRI of the area of concern.
[2024-10-31] MEDS: acetaminophen 1,000mg/100ml IV 100 ML IV ONE (21:13)
[2024-11-01] VITALS (15 sets, daily range): BP systolic 119–169; BP diastolic 77–107; PULSE 59–101; RESP 16–20; TEMP 97.4–98.4; O2SAT 92–100
[2024-11-01] MEDS ORDERED: potassium Cl 20 mEq SR tablet PO PRN ×2
[2024-11-01] MEDS ORDERED: magnesium sulf-water 4G/100mL 100 ML IV PRN
[2024-11-01] MEDS ORDERED: magnesium Cl slow-release 64mg tablet PO PRN
[2024-11-01] MEDS ORDERED: magnesium sulf-water 2g/50mL 50 ML IV PRN
[2024-11-01] MEDS ORDERED: potassium Cl 40MEQ/1/2NS 520ml 520 ML IV PRN
--- NOTE | 2024-11-01 00:15 | HISTORY AND PHYSICAL-Residence ---
History & Physical Providers to CC Resident Creating Document: NOEMI SANABRIA RES ~ History of Present Illness Primary Medical Doctor: [facility] Reason for Admit\Complaint: cat bite, swelling, tenderness History of Present Illness This is a 59-year-old male with a history of hypertension and end-stage renal disease on dialysis, presenting to ER with worsening swelling, tenderness, and pain in the affected area following a cat bite. The incident occurred approximately one week ago when he was bitten by his own domestic cat, described as well kept and current on vaccinations. He was initially evaluated in an outpatient setting and prescribed a seven day course of oral doxycycline, which led to partial improvement. However, over the past few days, his symptoms have worsened again, with increased pain, tenderness and swelling. He received a tetanus booster on Tuesday at outpatient clinic. He denies fever, chills, or malaise at this time. He reports unknown allergy to penicillin. Allergies: Coded Allergies: Penicillins (Unverified Allergy, Unknown, 10/31/24) Home Medications Home Medications Active Reported Warfarin Sodium 4 Mg Tablet 1 Tab PO DAILY Warfarin Sodium 1 Mg Tablet Warfarin Sodium 5 Mg Tablet 1 Tab PO DAILY Cordarone (Amiodarone HCl) 200 Mg Tablet Atorvastatin Calcium 40 Mg Tablet 1 Tab PO DAILY Cyclobenzaprine* (Cyclobenzaprine HCl) 10 Mg Tablet 1 Tab PO BID PRN Furosemide 80 Mg Tablet 1 Tab PO QID/4X'SWEEKLY Calcium Acetate 667 Mg Capsule Past Medical History Past Medical History Hypertension, end-stage renal disease Past Surgical History Surgical History Comment Dialysis fistula Past Social History Social History Comment Denies smoking, consumes alcohol rarely, no recreational drugs. Lives alone. On hemodialysis. Alcohol Use: None Drug Use: None Lives In: Home ROS All Other Systems: Reviewed and Negative ROS As stated above in the HPI, otherwise all systems are reviewed and negative. Exam Vitals: Vital Signs Date Time Temp Pulse Resp B/P (MAP) Pulse Ox O2 Delivery O2 Flow Rate FiO2 10/31/24 21:18 68 18 170/113 (132) 99 0 10/31/24 19:16 98.1 General Appearance: Well developed, well nourished. Awake, alert and oriented x4, resting comfortably in bed, in no acute distress. HEENT: Atraumatic, normocephalic, MISA, EOMI. Normal oropharynx, moist oral mucosa. Neck: Trachea midline. Supple, normal ROM. No JVD, bruit, lymphadenopathy or masses, or other lesions. Respiratory: Chest wall is symmetric and without deformity. No signs of respiratory distress. Equal breath sounds bilaterally. No wheeze, rub, Rales or crackles. Cardiac: RRR, no murmur, rub or gallop. Normal S1 and S2. GI: No tenderness. Abdomen symmetric, nondistended, soft, normal bowel sounds x4 quadrant normoactive. No guarding, no rebound or rigidity. No hepatosplenomegaly. No masses, no bruit, no flank pain bilaterally. Extremities: Swelling, tenderness, and erythema right hand, small bite chan Skin: Intact, dry, warm, no rashes or petechia. Neuro: Speech is clear, alert and oriented x4. No sensory or motor deficit, DTRs normal. Cranial nerves II to XII intact. Psych: Normal affect, good eye contact, no apparent hallucination, normal speech. Diagnostic Data Last Recorded Lab Results: 10/31/24 17010/31/24 170 Advance Care Planning Advanced Care plannin - 30 Minutes Additional Plan Assessment and plan This is a 59-year-old male with a history of hypertension and end-stage renal disease on dialysis, presenting to ER with worsening swelling, tenderness, and pain in the affected area following a cat bite. The incident occurred approximately one week ago when he was bitten by his own domestic cat, described as well kept and current on vaccinations. He was initially evaluated in an outpatient setting and prescribed a seven day course of oral doxycycline, which led to partial improvement. However, over the past few days, his symptoms have worsened again, with increased pain, tenderness and swelling. Right hand cellulitis Worsening after cat bite Bitten by his own domestic cat one week ago Treated with seven day course of oral doxycycline with initial improvement, now worsening swelling, tenderness, and pain No systemic symptoms at this time Penicillin allergy Admitted for IV antibiotics; given penicillin allergy and need for pasturulla M. coverage, started on IV ceftriaxone and metronidazole Tetanus updated on Tuesday, no further immunization needed End-stage renal disease on HD Tuesday, , Tuesday Coordinate with Nephrology to ensure dialysis tomorrow Avoid nephrotoxic medication Hypertension 170/113 - hydralazine 10 mg IV bolus Continue hydralazine 10 mg 3 times daily Monitor BP DVT prophylaxis: Heparin subQ Code status: Full code Noemi Sanabria Internal Medicine Resident Patient evaluated using HIPPA complaint AV device Agree with the plan as discussed with the resident Jania Walls MD Date of Service: Nov 01, 2024 Billing Provider: JANIA WALLS MD,NOEMI, RES Nov 01, 2024 00:15 JANIA WALLS MD Nov 01, 2024 04:34
[2024-11-01] MEDS: hydrALAZINE 20mg/ml inj. IV ONE (00:36)
[2024-11-01 03:06] LABS: BASOPHILS % (AUTO) 0.9 % (0-1); EOSINOPHILS # (AUTO) 0.3 X10'3 (0-0.9); EOSINOPHILS % (AUTO) 6.1 % (0-6); HEMATOCRIT 36.1 % (42.0-52.0); HEMOGLOBIN 12.1 g/dl (14.0-17.9); LYMPHOCYTES # (AUTO) 0.8 X10'3 (1.1-4.8); LYMPHOCYTES % (AUTO) 14.2 % (21-51); MEAN CORPUSCULAR HEMOGLOBIN 34.4 PG (27.0-31.0); MEAN CORPUSCULAR HGB CONC 33.4 g/dL (33.0-36.5); MEAN CORPUSCULAR VOLUME 103.2 FL (78-98); MONOCYTES % (AUTO) 19.3 % (2-12); NEUTROPHILS # (AUTO) 3.1 X10'3 (1.8-7.7); NEUTROPHILS % (AUTO) 59.5 % (42-75); PLATELET COUNT 219 X10'3 (140-440); RED CELL DISTRIBUTION WIDTH 18.9 % (11.5-14.5); WHITE BLOOD COUNT 5.3 X10'3 (4.5-11.0)
[2024-11-01 03:19] LABS: ALANINE AMINOTRANSFERASE 50 U/L (12-78); ALBUMIN 2.6 G/DL (3.4-5.0); ALBUMIN/GLOBULIN RATIO 0.6 (1.1-1.5); ALKALINE PHOSPHATASE 169 IU/L (46-116); ANION GAP 15 (8-16); ASPARTATE AMINO TRANSFERASE 25 U/L (10-37); BILIRUBIN,TOTAL 0.4 MG/DL (0.1-1.0); BLOOD UREA NITROGEN 58 MG/DL (7-18); BUN/CREATININE RATIO 6.1 (10.0-20.0); CALCIUM 9.4 MG/DL (8.5-10.1); CHLORIDE 100 MMOL/L (99-107); CREATININE 9.44 MG/DL (0.60-1.10); GLUCOSE 82 MG/DL (70-104); PHOSPHORUS 6.9 MG/DL (2.3-4.5); POTASSIUM 4.6 MMOL/L (3.5-5.1); SODIUM 141 MMOL/L (135-145); TOTAL CARBON DIOXIDE 26.4 MMOL/L (24-32); TOTAL PROTEIN 6.7 G/DL (6.4-8.2); eCRCL 9 ML/MIN; eGFR 6 ML/MIN
[2024-11-01] MEDS: diphenhydrAMINE 50 mg/ml inj IV ONE (05:07)
[2024-11-01] MEDS: acetaminophen 325mg tablet PO PRN (05:09)
[2024-11-01] MEDS: metroNIDAZOLE-Flagyl 500mg/NS 100 ML IV SCH (07:49)
[2024-11-01] MEDS: hyDRALAzine 10mg tablet PO SCH (07:54)
[2024-11-01] MEDS: heparin, porcine 5000 units/ml vial SQ SCH (08:00)
[2024-11-01] MEDS: K and/or MAG REPLACEMENT MC SCH (08:00)
[2024-11-01] MEDS ORDERED: normal saline 1000ml 100 ML IV PRN (08:35)
--- NOTE | 2024-11-01 09:10 | CONSULTATION REPORT - RESIDENT ---
Consult Providers to CC Resident Creating Document: KANCHANCHERELLE MOORE History of Present Illness Reason for Admit\Complaint: Cellulitis of hand History of Present Illness This is a 59-year-old male with a history of hypertension and end-stage renal disease on dialysis, presenting to ER with worsening swelling, tenderness, and pain in the affected area following a cat bite. The incident occurred approximately one week ago when he was bitten by his own domestic cat. He was initially evaluated in an outpatient setting and prescribed a seven day course of oral doxycycline, which led to partial improvement. However, over the past few days, his symptoms have worsened again, with increased pain, tenderness and swelling. He received a tetanus booster on Tuesday at outpatient clinic. He denies fever, chills, or malaise at this time. He reports unknown allergy to penicillin. He has been on dialysis since eight years. Regular dialysis schedule is Tuesday, , Tuesday. Last dialysis on Tuesday. Left forearm AV fistula. Patient mentioned that he has low blood pressure during dialysis but does not want to get fluids during dialysis because he is on some kind of diet. During regular dialysis he usually sits for some time after the dialysis which helps with the blood pressure. Allergies: Coded Allergies: Penicillins (Unverified Allergy, Unknown, 10/31/24) Home Medications Home Medications Active Reported Warfarin Sodium 4 Mg Tablet 1 Tab PO DAILY Warfarin Sodium 1 Mg Tablet Warfarin Sodium 5 Mg Tablet 1 Tab PO DAILY Cordarone (Amiodarone HCl) 200 Mg Tablet Atorvastatin Calcium 40 Mg Tablet 1 Tab PO DAILY Cyclobenzaprine* (Cyclobenzaprine HCl) 10 Mg Tablet 1 Tab PO BID PRN Furosemide 80 Mg Tablet 1 Tab PO QID/4X'SWEEKLY Calcium Acetate 667 Mg Capsule Past Medical History Past Medical History Hypertension, end-stage renal disease Past Surgical History Surgical History Comment Dialysis fistula Past Social History Social History Comment Denies smoking, consumes alcohol rarely, no recreational drugs. Lives alone. On hemodialysis. Exam Vitals: Vital Signs Date Time Temp Pulse Resp B/P (MAP) Pulse Ox O2 Delivery O2 Flow Rate FiO2 11/01/24 07:54 89 11/01/24 07:54 98.2 18 149/107 (121) 99 Room Air 11/01/24 05:32 0 General: General Appearance: Well developed, well nourished. Awake, alert and oriented x4, resting comfortably in bed, in no acute distress. HEENT: Atraumatic, normocephalic, MISA, EOMI. Normal oropharynx, moist oral mucosa. Neck: Trachea midline. Supple, normal ROM. No JVD, bruit, lymphadenopathy or masses, or other lesions. Respiratory: Chest wall is symmetric and without deformity. No signs of respiratory distress. Equal breath sounds bilaterally. No wheeze, rub, Rales or crackles. Cardiac: RRR, no murmur, rub or gallop. Normal S1 and S2. GI: No tenderness. Abdomen symmetric, nondistended, soft, normal bowel sounds x4 quadrant normoactive. No guarding, no rebound or rigidity. No hepatosplenomegaly. No masses, no bruit, no flank pain bilaterally. Extremities: Swelling, tenderness, and erythema right hand, small bite chan Skin: Intact, dry, warm, no rashes or petechia. Neuro: Speech is clear, alert and oriented x4. No sensory or motor deficit, DTRs normal. Cranial nerves II to XII intact. Psych: Normal affect, good eye contact, no apparent hallucination, normal speech. AV fistula on left forearm Diagnostic Data Last Recorded Lab Results: 11/01/24 02511/01/24 025 Additional Plan Assessment his is a 59-year-old male with a history of hypertension and end-stage renal disease on dialysis, presenting to ER with worsening swelling, tenderness, and pain in the affected area following a cat bite. He has been on dialysis since eight years. Regular dialysis schedule is Tuesday, , Tuesday. Last dialysis on Tuesday. Left forearm AV fistula. Plan End-stage renal disease on dialysis Regular dialysis schedule Tuesday, , Tuesday Patient will be getting dialysis today. Creatinine 9.44, BUN 58 Potassium normal, phosphorus high Avoid NSAIDs and contrast agents. Follow up with repeat BMP. Right hand cellulitis Worsening after cat bite Bitten by his own domestic cat one week ago Treated with seven day course of oral doxycycline with initial improvement, now worsening swelling, tenderness, and pain No systemic symptoms at this time Penicillin allergy Admitted for IV antibiotics; given penicillin allergy and need for pasturulla M. coverage, started on IV ceftriaxone and metronidazole Tetanus updated on Tuesday, no further immunization needed Hypertension 170/113 - hydralazine 10 mg IV bolus Continue hydralazine 10 mg 3 times daily Monitor BP DVT prophylaxis: Heparin subQ Code status: Full code Aaron Staples M.D Nephrology Resident PGY1 Date of Service: Nov 01, 2024 Billing Provider: ERIK KRUGER III, PRAVAHIKA, RES Nov 01, 2024 09:10
[2024-11-01] MEDS: heparin 1,000 units/ml 10ml inj HE ONE ×2 (09:18→18:00)
--- NOTE | 2024-11-01 11:52 | PROGRESS NOTE- Residence ---
Progress Note - Resident Providers to CC Resident Creating Document: FRANMARTIR RES ~ Antibiotic Timeout Antibiotic Ordered?: Yes Subjective Patient was seen and examined at the bedside. AV fistula is functioning. Patient has reddish discoloration of his left arm. He mentions that he took four days of doxycycline which improved the pain and swelling a little bit, but he mentions the rash has been worsening since last night even after receiving IV antibiotics. He states that he was allergic to penicillin according to her mother in the childhood but does not know what the reaction is. He is also requesting for pain medication and mentions he is in severe pain Objective Vital Signs Date Time Temp Pulse Resp B/P (MAP) Pulse Ox O2 Delivery O2 Flow Rate FiO2 11/01/24 10:00 97.9 87 16 139/85 (103) 99 Room Air 11/01/24 08:00 0.0 Result Diagram: 11/01/24 0250 11/01/24 0250 General Appearance: Well developed, well nourished. Awake, alert and oriented x4, resting comfortably in bed, in no acute distress. HEENT: Atraumatic, normocephalic, MISA, EOMI. Normal oropharynx, moist oral mucosa. Neck: Trachea midline. Supple, normal ROM. No JVD, bruit, lymphadenopathy or masses, or other lesions. Respiratory: Chest wall is symmetric and without deformity. No signs of respiratory distress. Equal breath sounds bilaterally. No wheeze, rub, Rales or crackles. Cardiac: RRR, no murmur, rub or gallop. Normal S1 and S2. GI: No tenderness. Abdomen symmetric, nondistended, soft, normal bowel sounds x4 quadrant normoactive. No guarding, no rebound or rigidity. No hepatosplenomegaly. No masses, no bruit, no flank pain bilaterally. Extremities: Swelling, tenderness, and erythema of left hand, small bite chan Skin: Intact, dry, warm, no rashes or petechia. Neuro: Speech is clear, alert and oriented x4. No sensory or motor deficit, DTRs normal. Cranial nerves II to XII intact. Psych: Normal affect, good eye contact, no apparent hallucination, normal speech. Assessment Assessment This is a 59-year-old male with a history of hypertension and end-stage renal disease on dialysis, presenting to ER with worsening swelling, tenderness, and pain in the affected area following a cat bite. The incident occurred approximately one week ago when he was bitten by his own domestic cat, described as well kept and current on vaccinations. He was initially evaluated in an outpatient setting and prescribed a seven day course of oral doxycycline, which led to partial improvement. However, over the past few days, his symptoms have worsened again, with increased pain, tenderness and swelling. Plan Plan Right hand cellulitis Worsening after cat bite Failed outpatient antibiotic treatment Bitten by his own domestic cat one week ago Treated with seven day course of oral doxycycline with initial improvement, now worsening swelling, tenderness, and pain No systemic symptoms at this time Penicillin allergy Admitted for IV antibiotics; given penicillin allergy and need for pasturulla M. coverage, started on IV ceftriaxone and metronidazole Tetanus updated on Tuesday, no further immunization needed 11/01/2024: Started on [place] five for pain control. Swelling, redness and fever or worse since yesterday according to the patient. End-stage renal disease on HD Tuesday, , Tuesday Coordinate with Nephrology to ensure dialysis tomorrow Avoid nephrotoxic medication 11/01/2024: Scheduled for dialysis today. AV fistula is functioning. Hypertension 170/113 - received hydralazine 10 mg IV bolus in ER Continue hydralazine 10 mg 3 times daily Monitor BP DVT prophylaxis: Heparin subQ Code status: Full code Martir Ramos Internal Medicine Resident Date of Service: Nov 01, 2024 Billing Provider: SAMIRA CAMILO MD Common Visit Codes: [id number] INP/OBS CARE(HIGH) MARTIR PETERS, RES Nov 01, 2024 11:52 SAMIRA CAMILO MD Nov 01, 2024 18:54
[2024-11-01] MEDS: HYDROcodone/acetaminophen 5mg/325mg tablet PO PRN (12:06)
[2024-11-01] MEDS: CefTRIAXone/D5W-Rocephin 1gm 50 ML IV SCH (21:34)
[2024-11-02 06:00] VITALS: BP 143/89; PULSE 100; RESP 12; TEMP 98.2; O2SAT 99
[2024-11-02 06:18] LABS: BASOPHILS % (AUTO) 0.7 % (0-1); EOSINOPHILS # (AUTO) 0.3 X10'3 (0-0.9); EOSINOPHILS % (AUTO) 4.9 % (0-6); HEMATOCRIT 36.4 % (42.0-52.0); HEMOGLOBIN 12.6 g/dl (14.0-17.9); LYMPHOCYTES # (AUTO) 0.6 X10'3 (1.1-4.8); LYMPHOCYTES % (AUTO) 11.8 % (21-51); MEAN CORPUSCULAR HGB CONC 34.5 g/dL (33.0-36.5); MEAN CORPUSCULAR VOLUME 101.4 FL (78-98); MONOCYTES # (AUTO) 0.9 X10'3 (0-0.9); MONOCYTES % (AUTO) 17.3 % (2-12); NEUTROPHILS # (AUTO) 3.4 X10'3 (1.8-7.7); NEUTROPHILS % (AUTO) 65.3 % (42-75); PLATELET COUNT 257 X10'3 (140-440); RED BLOOD COUNT 3.59 X10'6 (4.70-6.10); RED CELL DISTRIBUTION WIDTH 18.3 % (11.5-14.5); WHITE BLOOD COUNT 5.2 X10'3 (4.5-11.0)
[2024-11-02 06:36] LABS: ALANINE AMINOTRANSFERASE 42 U/L (12-78); ALBUMIN 2.6 G/DL (3.4-5.0); ALBUMIN/GLOBULIN RATIO 0.6 (1.1-1.5); ALKALINE PHOSPHATASE 164 IU/L (46-116); ANION GAP 15 (8-16); ASPARTATE AMINO TRANSFERASE 27 U/L (10-37); BILIRUBIN,TOTAL 0.5 MG/DL (0.1-1.0); BLOOD UREA NITROGEN 36 MG/DL (7-18); BUN/CREATININE RATIO 5.2 (10.0-20.0); CALCIUM 9.2 MG/DL (8.5-10.1); CHLORIDE 101 MMOL/L (99-107); CREATININE 6.91 MG/DL (0.60-1.10); GLUCOSE 91 MG/DL (70-104); MAGNESIUM 2.5 MG/DL (1.5-2.4); PHOSPHORUS 6.2 MG/DL (2.3-4.5); SODIUM 141 MMOL/L (135-145); TOTAL CARBON DIOXIDE 25.3 MMOL/L (24-32); TOTAL PROTEIN 6.7 G/DL (6.4-8.2); eCRCL 12 ML/MIN; eGFR 8 ML/MIN
[2024-11-02 08:00] VITALS: RESP 16; O2SAT 99
[2024-11-02] MEDS: ondansetron/PF 4mg/2ml inj IV PRN (09:32)
[2024-11-02 10:00] VITALS: BP 136/92; PULSE 92; RESP 16; TEMP 97.8; O2SAT 99
[2024-11-02 14:10] VITALS: BP 157/100; PULSE 88; RESP 16; TEMP 98.2; O2SAT 99
[2024-11-02] MEDS ORDERED: vancomycin/NS 1 GM ADD-VANTAGE 250 ML X 1 DOSE IV PRN (14:45)
[2024-11-02] MEDS: vancomycin/NS 1 GM ADD-VANTAGE 250 ML X 1 DOSE IV ONE (14:59)
--- NOTE | 2024-11-02 15:41 | PROGRESS NOTE- Residence ---
Progress Note - Resident Providers to CC Resident Creating Document: AARON HEMPHILL, RES ~ Central Line/PICC still needed: No Del Cid-Non Protocol Del Cid Indications Met/Not Met: F/C Indications Not Met Antibiotic Timeout Antibiotic Ordered?: Yes Subjective Pt was seen and examined at the bedside. He is scheduled for dialysis tomorrow morning. Objective Vital Signs Date Time Temp Pulse Resp B/P (MAP) Pulse Ox O2 Delivery O2 Flow Rate FiO2 11/02/24 14:10 98.2 88 16 157/100 (119) 99 Room Air 11/02/24 08:00 0.0 Result Diagram: 11/02/24 0530 11/02/24 0530 General Appearance: Well developed, well nourished. Awake, alert and oriented x4, resting comfortably in bed, in no acute distress. HEENT: Atraumatic, normocephalic, MISA, EOMI. Normal oropharynx, moist oral mucosa. Neck: Trachea midline. Supple, normal ROM. No JVD, bruit, lymphadenopathy or masses, or other lesions. Respiratory: Chest wall is symmetric and without deformity. No signs of respiratory distress. Equal breath sounds bilaterally. No wheeze, rub, Rales or crackles. Cardiac: RRR, systolic murmur more prominent in mitral area, rub or gallop. Normal S1 and S2. GI: No tenderness. Abdomen symmetric, nondistended, soft, normal bowel sounds x4 quadrant normoactive. No guarding, no rebound or rigidity. No hepatosplenomegaly. No masses, no bruit, no flank pain bilaterally. Extremities: Swelling, tenderness, and erythema left hand, small bite chan Skin: Intact, dry, warm, no rashes or petechia. Neuro: Speech is clear, alert and oriented x4. No sensory or motor deficit, DTRs normal. Cranial nerves II to XII intact. Psych: Normal affect, good eye contact, no apparent hallucination, normal speech. AV fistula on left forearm Advance Care Planning Advanced Care plannin - 30 Minutes Plan Plan This is a 59-year-old male with a history of hypertension and end-stage renal disease on dialysis, presenting to ER with worsening swelling, tenderness, and pain in the affected area following a cat bite. He has been on dialysis since eight years. Regular dialysis schedule is Tuesday, , Tuesday. Last dialysis on Tuesday. Left forearm AV fistula. Plan End-stage renal disease on dialysis Regular dialysis schedule Tuesday, , Tuesday Received 1 round of dialysis yesterday. He will get dialyzed tomorrow morning. Creatinine and BUN improved Potassium normal Avoid NSAIDs and contrast agents. Follow up with repeat BMP. Hyperphosphatemia Phosphorus 6.2 Started on sevelamer t.i.d. Systolic murmur in mitral area Echo records requested from Dr. Street's office Left hand cellulitis Worsening after cat bite Bitten by his own domestic cat one week ago Treated with seven day course of oral doxycycline with initial improvement, now worsening swelling, tenderness, and pain No systemic symptoms at this time Penicillin allergy Admitted for IV antibiotics; given penicillin allergy and need for pasturulla M. coverage, started on IV ceftriaxone and metronidazole Tetanus updated on Tuesday, no further immunization needed 11/02/24-started on vancomycin ID and ortho consulted by hospitalist team for possible tenosynovitis. Hypertension Currently on hydralazine 25 mg p.o. q.8h scheduled Monitor BP DVT prophylaxis: Heparin subQ Code status: Full code Aaron Hemphill M.D Nephrology Resident PGY1 Attending Note: CAre plan reviewed with residents. pateint seen and examined. The left dorsum cellulitis of the hand is slowly improving. on antibiotics. has ansurysmal points in the left forearm fistula. giving renvela to bring down the pohs quickly. when he goes home, he can continue with ca acetate only. patient has psm in mitral area. need to check the echocadioram from 's office. Sang Demarco MD Nephrology Date of Service: Nov 02, 2024 Billing Provider: SANG DEMARCO MD, PRAVAHIKA, RES Nov 02, 2024 15:41 SANG DEMARCO MD Nov 02, 2024 18:10
[2024-11-02] MEDS: hydrALAZINE 25 MG tablet PO SCH (16:41)
[2024-11-02] MEDS: sevelamer carbonate 800mg tablet PO SCH (17:30)
--- NOTE | 2024-11-02 18:35 | PROGRESS NOTE- Residence ---
Progress Note - Resident Providers to CC Resident Creating Document: MARTIR PETERS RES ~ Antibiotic Timeout Antibiotic Ordered?: Yes Subjective Pt was seen and examined at the bedside. Added vancomycin for coverage of MRSA and consulted ID for cat bite and failure of outpatient management with antibiotics. Also consulted Dr. Mcgregor to rule out tenosynovitis. Due to absence of kanavels(signs of tenosynovitis) no surgery is recommended. Bulky hand compression dressing ordered Objective Vital Signs Date Time Temp Pulse Resp B/P (MAP) Pulse Ox O2 Delivery O2 Flow Rate FiO2 11/02/24 16:41 87 11/02/24 14:10 98.2 16 157/100 (119) 99 Room Air 11/02/24 08:00 0.0 Result Diagram: 11/02/24 0530 11/02/24 0530 General Appearance: Well developed, well nourished. Awake, alert and oriented x4, resting comfortably in bed, in no acute distress. HEENT: Atraumatic, normocephalic, MISA, EOMI. Normal oropharynx, moist oral mucosa. Neck: Trachea midline. Supple, normal ROM. No JVD, bruit, lymphadenopathy or masses, or other lesions. Respiratory: Chest wall is symmetric and without deformity. No signs of respiratory distress. Equal breath sounds bilaterally. No wheeze, rub, Rales or crackles. Cardiac: RRR, no murmur, rub or gallop. Normal S1 and S2. GI: No tenderness. Abdomen symmetric, nondistended, soft, normal bowel sounds x4 quadrant normoactive. No guarding, no rebound or rigidity. No hepatosplenomegaly. No masses, no bruit, no flank pain bilaterally. Extremities: Swelling, tenderness, and erythema of left hand, small bite chan Skin: Intact, dry, warm, no rashes or petechia. Neuro: Speech is clear, alert and oriented x4. No sensory or motor deficit, DTRs normal. Cranial nerves II to XII intact. Psych: Normal affect, good eye contact, no apparent hallucination, normal speech. Assessment Assessment This is a 59-year-old male with a history of hypertension and end-stage renal disease on dialysis, presenting to ER with worsening swelling, tenderness, and pain in the left hand following a cat bite. The incident occurred approximately one week ago when he was bitten by his own domestic cat, described as well kept and current on vaccinations. He was initially evaluated in an outpatient setting and prescribed a seven day course of oral doxycycline, which led to partial improvement. However, over the past few days, his symptoms have worsened again, with increased pain, tenderness and swelling. Plan Plan Left hand cellulitis Worsening after cat bite Failed outpatient antibiotic treatment with doxycycline Tenosynovitis ruled out Bitten by his own domestic cat one week ago Treated with seven day course of oral doxycycline with initial improvement, now worsening swelling, tenderness, and pain No systemic symptoms at this time Penicillin allergy Admitted for IV antibiotics; given penicillin allergy and need for pasturulla M. coverage, started on IV ceftriaxone and metronidazole Tetanus updated on Tuesday, no further immunization needed Patient has pain and swelling is improving with antibiotics. ID consultation and vancomycin added for addition coverage. Also consulted Dr. Mcgregor to rule out tenosynovitis. Due to absence of kanavels(signs of tenosynovitis) no surgery is recommended. Bulky hand compression dressing ordered End-stage renal disease on HD Tuesday, , Tuesday Coordinate with Nephrology to ensure dialysis tomorrow Avoid nephrotoxic medication 11/02/2024: Scheduled for dialysis tomorrow. AV fistula is functioning. Copyright Clerk team started on renelva to correct the phosphorus. We will also start on calcium acetate at discharge. Hypertension 170/113 - received hydralazine 10 mg IV bolus in ER Continue hydralazine 10 mg 3 times daily Monitor BP Systolic murmur in the mitral area Echocardiogram ordered. Follow up DVT prophylaxis: Heparin subQ Code status: Full code Martir Ramos Internal Medicine Resident Date of Service: Nov 02, 2024 Billing Provider: JAMEY NAVARRETE MD Common Visit Codes: [id number] INP/OBS CARE(HIGH) MARTIR PETERS, RES Nov 02, 2024 18:35 JAMEY NAVARRETE MD Nov 08, 2024 23:31
[2024-11-02 20:00] VITALS: RESP 16; O2SAT 97
[2024-11-03] VITALS (14 sets, daily range): BP systolic 128–163; BP diastolic 67–110; PULSE 64–101; RESP 16–20; TEMP 97.5–98.2; O2SAT 86–99
[2024-11-03] MEDS: VANCOMYCIN LEVEL IV SCH (03:00)
[2024-11-03 06:23] LABS: EOSINOPHILS # (AUTO) 0.3 X10'3 (0-0.9); EOSINOPHILS % (AUTO) 5.8 % (0-6); HEMATOCRIT 36.4 % (42.0-52.0); HEMOGLOBIN 12.5 g/dl (14.0-17.9); LYMPHOCYTES # (AUTO) 0.6 X10'3 (1.1-4.8); LYMPHOCYTES % (AUTO) 13.5 % (21-51); MEAN CORPUSCULAR HEMOGLOBIN 34.8 PG (27.0-31.0); MEAN CORPUSCULAR HGB CONC 34.3 g/dL (33.0-36.5); MEAN CORPUSCULAR VOLUME 101.4 FL (78-98); MEAN PLATELET VOLUME 7.1 FL (7.4-10.4); MONOCYTES # (AUTO) 0.7 X10'3 (0-0.9); MONOCYTES % (AUTO) 16.2 % (2-12); NEUTROPHILS # (AUTO) 2.8 X10'3 (1.8-7.7); NEUTROPHILS % (AUTO) 63.5 % (42-75); PLATELET COUNT 254 X10'3 (140-440); RED BLOOD COUNT 3.59 X10'6 (4.70-6.10); RED CELL DISTRIBUTION WIDTH 18.5 % (11.5-14.5); WHITE BLOOD COUNT 4.4 X10'3 (4.5-11.0)
[2024-11-03 07:06] LABS: ALANINE AMINOTRANSFERASE 51 U/L (12-78); ALBUMIN 2.5 G/DL (3.4-5.0); ALBUMIN/GLOBULIN RATIO 0.6 (1.1-1.5); ALKALINE PHOSPHATASE 155 IU/L (46-116); ANION GAP 13 (8-16); ASPARTATE AMINO TRANSFERASE 45 U/L (10-37); BILIRUBIN,TOTAL 0.5 MG/DL (0.1-1.0); BLOOD UREA NITROGEN 49 MG/DL (7-18); BUN/CREATININE RATIO 5.3 (10.0-20.0); CALCIUM 9.4 MG/DL (8.5-10.1); CHLORIDE 98 MMOL/L (99-107); CREATININE 9.19 MG/DL (0.60-1.10); GLUCOSE 107 MG/DL (70-104); MAGNESIUM 2.7 MG/DL (1.5-2.4); PHOSPHORUS 7.1 MG/DL (2.3-4.5); POTASSIUM 4.1 MMOL/L (3.5-5.1); SODIUM 139 MMOL/L (135-145); TOTAL CARBON DIOXIDE 27.8 MMOL/L (24-32); TOTAL PROTEIN 6.6 G/DL (6.4-8.2); VANCOMYCIN,RANDOM 22.8 ug/mL (20.0-30.0); eCRCL 9 ML/MIN; eGFR 6 ML/MIN
[2024-11-03] MEDS ORDERED: albumin (human) 25% 100ml IV 100 ML IV PRN (08:00)
[2024-11-03] MEDS: atorvastatin 20mg tablet PO SCH (09:50)
--- NOTE | 2024-11-03 10:57 | PROGRESS NOTE ---
Progress Note Dictate Providers to CC ~ Central Line/PICC still needed: No Del Cid Indications Met/Not Met: F/C Indications Not Met Antibiotic Ordered?: N/A Subjective Subjective The patient has gone down for MRi. he is due for HD today and orders are in place. Objective Vitals Vital Signs Date Time Temp Pulse Resp B/P (MAP) Pulse Ox O2 Delivery O2 Flow Rate FiO2 11/03/24 14:15 16 11/03/24 10:17 98.2 64 153/89 (110) 99 Room Air 11/03/24 07:45 0.0 Lab Results: 11/03/24 0538 11/03/24 0538 Objective Vital Signs: As above he has stepped down right when I came to see him for MRi and I could not examine him today. But RN reports that he has been feeling ok and has been asking about when he can go home. Advance Care Planning Advanced Care plannin - 30 Minutes Problem\Assessment\Plan Problems/Diagnosis: (1) ESRD (end stage renal disease) Assessment & Plan: HD today as usual. stop renveltang when he goes home. antibiotics will be given at the dialysis center, based on the ID recommendations. I need to know what antibiotics are being recommended for him so that I can work on arranging them. kindly keep me posted prior to discharge. (2) Cellulitis Sepsis Screening Skin Color: Normal KAYLYN DEMARCO MD Nov 03, 2024 10:57
[2024-11-03] MEDS: VANCOMYCIN DOSE IV ONE (11:50)
[2024-11-03] MEDS: LIDOcaine 5% patch TP PRN (14:14)
--- NOTE | 2024-11-03 16:27 | RADIOLOGY REPORT ---
CLINICAL HISTORY: 59 years old, Male; Rule out abcess in left hand . TECHNIQUE: Multi sequence multi planar MRI images of the left hand were obtained without IV contrast . COMPARISON: CT CT UPPER EXTREMITIES on DOS: 10/31/24 FINDINGS: Diffuse subcutaneous edema, most prominent of the dorsal aspect of the hand, likely due to cellulitis given the clinical information provided. There are fluid collections visualized palmar to the 2nd and 3rd metacarpals and dorsal to the flexor tendons at the level of the proximal to mid met acarpals, measuring up to 1.1 x 1.0 x 1.0 cm near the level of the mid 2nd metacarpal shaft up to 1.2 x 0.7 x 1.7 cm near the proximal to mid 3rd metacarpal shaft. Abscesses can not be excluded in thes e locations. Ovoid structure along the proximal ulnar aspect of the hand measures up to 1.8 x 1.2 by 2.3 cm, corresponding to the structure described on the prior CT exam, appears to be vascular in natu re, possible varicosity or vascular malformation, not well evaluated on noncontrast enhanced exam. Os seous structures are intact. No marrow signal abnormality to suggest osteomyelitis. IMPRESSION: 1. Prominent subcutaneous edema, likely cellulitis in the appropriate clinical setting. 2. T2 hyperintense collections interposed between the 2nd and 3rd metacarpals and the flexor tendons, possible fluid collections. Abscesses not excluded. Limited evaluation on noncontrast enhanced exa m. 3. Vascular lesion in the palmar, ulnar aspect of the hand. Differential considerations would include vascular malformation or varicosity, suboptimally evaluated without IV contrast. 4. Additional findings as described above
[2024-11-03] MEDS: heparin 1,000 units/ml 10ml inj IV ONE (18:07)
[2024-11-03] MEDS: heparin 1,000unit/ml 10ml vial 10 ML IV ONE (18:08)
[2024-11-03] MEDS: EPOETIN ALFA-EPBX 20,000 UNIT/ML 1 ML MDV IV ONE (18:09)
--- NOTE | 2024-11-03 19:38 | PROGRESS NOTE- Residence ---
Progress Note - Resident Providers to CC Resident Creating Document: KOBE WILSON RES ~ Antibiotic Timeout Antibiotic Ordered?: Yes Subjective Patient was cleared by Dr. Mcgregor for his possible tenosynovitis after cat bite, Dr. Han Sanchez recommendation needed for discharge antibiotics plan, patient will be having hemodialysis today. He has been complaining about the inconvenience and uncomfortable bed at room, having back pain requesting for massage or chiropractic therapy during hospitalization which is not available. He is wearing compression dressing. Also requested for embrace to elevate the affected limbs to reduce swelling. He complains of the food he is having right now is not very good and he usually does not compliance with renal diet. He needs to hire people to take care of him when he released and he is living by himself. Objective Vital Signs Date Time Temp Pulse Resp B/P (MAP) Pulse Ox O2 Delivery O2 Flow Rate FiO2 11/03/24 18:44 18 11/03/24 18:05 78 130/86 (101) 96 Room Air 11/03/24 17:35 97.9 11/03/24 07:45 0.0 Result Diagram: 11/03/24 0538 11/03/24 0538 Vitals were stable. On exam, General Appearance: Well developed, well nourished. Awake, alert and oriented x4, resting comfortably in bed, in no acute distress. HEENT: Atraumatic, normocephalic, MISA, EOMI. Normal oropharynx, moist oral mucosa. Neck: Trachea midline. Supple, normal ROM. No JVD, bruit, lymphadenopathy or masses, or other lesions. Respiratory: Chest wall is symmetric and without deformity. No signs of respiratory distress. Equal breath sounds bilaterally. No wheeze, rub, Rales or crackles. Cardiac: RRR, no murmur, rub or gallop. Normal S1 and S2. GI: No tenderness. Abdomen symmetric, nondistended, soft, normal bowel sounds x4 quadrant normoactive. No guarding, no rebound or rigidity. No hepatosplenomegaly. No masses, no bruit, no flank pain bilaterally. Extremities: Swelling, tenderness, and erythema of left hand, small bite chan Skin: Intact, dry, warm, no rashes or petechia. Neuro: Speech is clear, alert and oriented x4. No sensory or motor deficit, DTRs normal. Cranial nerves II to XII intact. Psych: Normal affect, good eye contact, no apparent hallucination, normal speech. Assessment Assessment This is a 59-year-old male with a history of hypertension and end-stage renal disease on dialysis, presenting to ER with worsening swelling, tenderness, and pain in the left hand following a cat bite. The incident occurred approximately one week ago when he was bitten by his own domestic cat, described as well kept and current on vaccinations. He was initially evaluated in an outpatient setting and prescribed a seven day course of oral doxycycline, which led to partial improvement. However, over the past few days, his symptoms have worsened again, with increased pain, tenderness and swelling. Plan Plan Left hand cellulitis Worsening after cat bite Failed outpatient antibiotic treatment with doxycycline Tenosynovitis ruled out Bitten by his own domestic cat one week ago Treated with seven day course of oral doxycycline with initial improvement, now worsening swelling, tenderness, and pain No systemic symptoms at this time Continue IV antibiotics; given penicillin allergy and need for pasturulla M. coverage, continue on IV ceftriaxone and metronidazole with vancomycin as per ID recommendation Tetanus updated on Tuesday, no further immunization needed Tenosynovitis was excluded by Dr. Mcgregor Due to absence of kanavels(signs of tenosynovitis) no surgery is recommended. Continue with Bulky hand compression dressing End-stage renal disease on HD Tuesday, , Tuesday Coordinate with Nephrology to ensure dialysis tomorrow Avoid nephrotoxic medication 11/03/2024: Today he will be having the hemodialysis under Dr. Young instructions -needs to stop Renvela on discharge, antibiotics will be continue on hemodialysis at the HD center, Dr. Young requested to informed for the antibiotics to continue at hemodialysis center before he we will be discharged. 11/02/2024: Scheduled for dialysis tomorrow. AV fistula is functioning. Physician Extender team started on renelva to correct the phosphorus. We will also start on calcium acetate at discharge. Hypertension 170/113 - received hydralazine 10 mg IV bolus in ER Continue hydralazine 10 mg 3 times daily Monitor BP Systolic murmur in the mitral area Echocardiogram ordered. Follow up Code status: Full code DVT prophylaxis: Heparin subQ Diet: Renal diet Disposition: Continue medical management including IV antibiotics and hemodialysis, needs to stop Renvela on discharge and to inform IV antibiotics plan at HD center to Nephrology before discharge, needs to follow up with ID for antibiotic on discharge, discharge home with antibiotics and HD tomorrow. Resident MD attestation: Patient was seen, examined and discussed with attending MD, Dr. Brandon WILSON MD Internal Medicine Resident, PGY2 [facility] Date of Service: Nov 03, 2024 Billing Provider: JAMEY NAVARRETE MD Common Visit Codes: [id number] INP/OBS CARE(HIGH) KOBE WILSON, RES Nov 03, 2024 19:38 JAMEY NAVARRETE MD Nov 08, 2024 23:31
[2024-11-03] MEDS: traMADol 50MG tablet PO ONE (21:30)
[2024-11-04 06:00] VITALS: BP 163/88; PULSE 68; RESP 14; TEMP 98.1; O2SAT 100
[2024-11-04 06:02] LABS: BASOPHILS % (AUTO) 0.7 % (0-1); EOSINOPHILS # (AUTO) 0.1 X10'3 (0-0.9); EOSINOPHILS % (AUTO) 3.1 % (0-6); HEMATOCRIT 33.6 % (42.0-52.0); HEMOGLOBIN 11.5 g/dl (14.0-17.9); LYMPHOCYTES # (AUTO) 0.6 X10'3 (1.1-4.8); LYMPHOCYTES % (AUTO) 12.6 % (21-51); MEAN CORPUSCULAR HEMOGLOBIN 34.5 PG (27.0-31.0); MEAN CORPUSCULAR HGB CONC 34.1 g/dL (33.0-36.5); MEAN CORPUSCULAR VOLUME 101.3 FL (78-98); MEAN PLATELET VOLUME 6.9 FL (7.4-10.4); MONOCYTES # (AUTO) 0.8 X10'3 (0-0.9); MONOCYTES % (AUTO) 18.7 % (2-12); NEUTROPHILS # (AUTO) 2.9 X10'3 (1.8-7.7); NEUTROPHILS % (AUTO) 64.9 % (42-75); PLATELET COUNT 255 X10'3 (140-440); RED BLOOD COUNT 3.32 X10'6 (4.70-6.10); RED CELL DISTRIBUTION WIDTH 18.3 % (11.5-14.5); WHITE BLOOD COUNT 4.5 X10'3 (4.5-11.0)
[2024-11-04 06:18] LABS: ALANINE AMINOTRANSFERASE 82 U/L (12-78); ALBUMIN 2.4 G/DL (3.4-5.0); ALBUMIN/GLOBULIN RATIO 0.6 (1.1-1.5); ALKALINE PHOSPHATASE 160 IU/L (46-116); ANION GAP 10 (8-16); ASPARTATE AMINO TRANSFERASE 78 U/L (10-37); BILIRUBIN,TOTAL 0.5 MG/DL (0.1-1.0); BLOOD UREA NITROGEN 28 MG/DL (7-18); BUN/CREATININE RATIO 4.4 (10.0-20.0); CALCIUM 9.3 MG/DL (8.5-10.1); CHLORIDE 103 MMOL/L (99-107); CREATININE 6.42 MG/DL (0.60-1.10); GLUCOSE 89 MG/DL (70-104); MAGNESIUM 2.5 MG/DL (1.5-2.4); PHOSPHORUS 5.6 MG/DL (2.3-4.5); POTASSIUM 4.5 MMOL/L (3.5-5.1); SODIUM 142 MMOL/L (135-145); TOTAL CARBON DIOXIDE 28.6 MMOL/L (24-32); TOTAL PROTEIN 6.2 G/DL (6.4-8.2); VANCOMYCIN,RANDOM 15.6 ug/mL (20.0-30.0); eCRCL 13 ML/MIN; eGFR 9 ML/MIN
--- NOTE | 2024-11-04 09:59 | PROGRESS NOTE ---
Progress Note Dictate Providers to CC ~ Central Line/PICC still needed: No Del Cid Indications Met/Not Met: F/C Indications Not Met Antibiotic Ordered?: Yes Subjective Subjective going for MRI with iv contrast gadolinium. I believe this is still 1st generation clay. so will do HD again tomorrow to get the clay removed. Objective Vitals Vital Signs Date Time Temp Pulse Resp B/P (MAP) Pulse Ox O2 Delivery O2 Flow Rate FiO2 11/04/24 17:26 70 11/04/24 11:00 97.3 15 150/97 (114) 98 Room Air 11/04/24 08:00 0.0 Lab Results: 11/04/24 0516 11/04/24 0516 Objective Vital Signs: As above he has stepped down right when I came to see him for MRi and I could not examine him today. But RN reports that he has been feeling ok and has been asking about when he can go home. Advance Care Planning Advanced Care plannin - 30 Minutes Problem\Assessment\Plan Problems/Diagnosis: (1) ESRD (end stage renal disease) Assessment & Plan: HD was done yesterday. he tolerated well.. stop renvela when he goes home. antibiotics will be given at the dialysis center, based on the ID recommendations. now seems to have fluid collection in dot dorsum of the hand which could be abscess. to get MRi with iv contrast today and felecia dialyze tomorrow again. (2) Cellulitis Assessment & Plan: as above. Sepsis Screening Skin Color: Normal KAYLYN DEMARCO MD Nov 04, 2024 09:59
[2024-11-04] MEDS: VANCOMYCIN DOSE IV ONE (10:35)
[2024-11-04 11:00] VITALS: BP 150/97; PULSE 59; RESP 15; TEMP 97.3; O2SAT 98
[2024-11-04] MEDS: cyclobenzaprine 10mg tablet PO PRN (12:20)
[2024-11-04] MEDS: amox tr/potassium clavulanate 500mg/125mg TAB PO SCH (17:23)
[2024-11-04 18:00] VITALS: BP 158/83; PULSE 70; RESP 16; TEMP 98.4; O2SAT 98
--- NOTE | 2024-11-04 18:04 | PROGRESS NOTE- Residence ---
Progress Note - Resident Providers to CC Resident Creating Document: PETERSMARTIR, RES ~ Antibiotic Timeout Antibiotic Ordered?: Yes Subjective Patient was seen and examined at the bedside. Patient mentions that he is still has pain in his left 2nd metatarsal joint area and is currently on Pandora q.4 for pain. He additionally requested Flexeril for back spasms. Patient is worried about his insurance coverage and wants to get discharged soon. I explained to the patient about the need for further imaging to rule out an abscess in the left hand. Patient understands and agrees to wait for further recommendations from Dr. Mcgregor. Objective Vital Signs Date Time Temp Pulse Resp B/P (MAP) Pulse Ox O2 Delivery O2 Flow Rate FiO2 11/04/24 17:26 70 11/04/24 11:00 97.3 15 150/97 (114) 98 Room Air 11/04/24 08:00 0.0 Result Diagram: 11/04/24 0516 11/04/24 0516 General Appearance: Well developed, well nourished. Awake, alert and oriented x4, resting comfortably in bed, in no acute distress. HEENT: Atraumatic, normocephalic, MISA, EOMI. Normal oropharynx, moist oral mucosa. Neck: Trachea midline. Supple, normal ROM. No JVD, bruit, lymphadenopathy or masses, or other lesions. Respiratory: Chest wall is symmetric and without deformity. No signs of respiratory distress. Equal breath sounds bilaterally. No wheeze, rub, Rales or crackles. Cardiac: RRR, no murmur, rub or gallop. Normal S1 and S2. GI: No tenderness. Abdomen symmetric, nondistended, soft, normal bowel sounds x4 quadrant normoactive. No guarding, no rebound or rigidity. No hepatosplenomegaly. No masses, no bruit, no flank pain bilaterally. Extremities: Swelling, tenderness, and erythema of left hand, small bite chan Skin: Intact, dry, warm, no rashes or petechia. Neuro: Speech is clear, alert and oriented x4. No sensory or motor deficit, DTRs normal. Cranial nerves II to XII intact. Psych: Normal affect, good eye contact, no apparent hallucination, normal speech. Assessment Assessment This is a 59-year-old male with a history of hypertension and end-stage renal disease on dialysis, presenting to ER with worsening swelling, tenderness, and pain in the left hand following a cat bite. The incident occurred approximately one week ago when he was bitten by his own domestic cat, described as well kept and current on vaccinations. He was initially evaluated in an outpatient setting and prescribed a seven day course of oral doxycycline, which led to partial improvement. However, over the past few days, his symptoms have worsened again, with increased pain, tenderness and swelling. Plan Plan Worsening Left hand cellulitis after cat bite 2.5 cm volar abscess between the 2nd and 3rd meta carpal joints Failed outpatient antibiotic treatment with doxycycline Tenosynovitis ruled out Bitten by his own domestic cat one week ago Treated with seven day course of oral doxycycline with initial improvement, now worsening swelling, tenderness, and pain No systemic symptoms at this time Continue IV antibiotics; given penicillin allergy and need for pasturulla M. coverage, continue on IV ceftriaxone and metronidazole with vancomycin as per ID recommendation Tetanus updated on Tuesday, no further immunization needed Tenosynovitis was excluded by Dr. Mcgregor Due to absence of kanavels(signs of tenosynovitis). Continue with Bulky hand compression dressing MRI of left upper extremity without contrast shows T2 hyperintense collections interposed between the 2nd and 3rd metacarpals and the flexor tendons, possible fluid collections. Abscesses not excluded. Limited evaluation on noncontrast enhanced exam. Dr. Mcgregor was consulted. He recommends MRI with gadolinium contrast exclude abscesses. End-stage renal disease on HD Dialysis schedule: Tuesday, , Tuesday Coordinate with Nephrology to ensure dialysis tomorrow on Tuesday Avoid nephrotoxic medication Patient is originally scheduled for dialysis on Tuesday but he will receive dialysis on Tuesday due to contrast administration. Hypertension Continue hydralazine 25 mg 3 times daily Monitor BP Systolic murmur in the mitral area Echocardiogram ordered. Follow up Code status: Full code DVT prophylaxis: Heparin subQ Diet: Renal diet Disposition: Continue medical management including IV antibiotics and hemodialysis, needs to stop Renvela on discharge and to inform IV antibiotics plan at HD center to Nephrology before discharge, needs to follow up with ID for antibiotic on discharge, discharge home with antibiotics and HD tomorrow. Martir Ramos MD Internal Medicine Resident, PGY1 [facility] Date of Service: Nov 04, 2024 Billing Provider: JAMEY NAVARRETE MD Common Visit Codes: [id number] INP/OBS CARE(HIGH) MARTIR PETERS, RES Nov 04, 2024 18:04 JAMEY NAVARRETE MD Nov 08, 2024 23:32
[2024-11-04 20:00] VITALS: RESP 16; O2SAT 98
--- NOTE | 2024-11-04 20:30 | CONSULTATION REPORT ---
Consult Consult Consultation Reason for Consult: Cat bite Consulting Provider: Dr. Taylor Antibiotic Days: Rocephin 4, Flagyl 4, Vanco 4 Lines: PIV Micro: 10/31 Blood- ngtd HPI: Patient is a 59 year old male with past medical history of ESRD who presented to [facility] on 10/31 due to R hand pain and swelling. Patient had been bitten by a cat about a week prior according to admission H&P. He was seen in urgent care and prescribed Doxycycline (just Doxy presumably due to a PCN allergy) though he tells me he only took about 2 days worth of pills. Upon arrival, he was admitted for cellulitis on Vanc, Rocephin, Flagyl. MRI was obtained which shows some abscesses near his tendons. He has been experiencing clinical improvement on his broad spectrum regimen. He says his PCN allergy occurred in childhood and has never been challenged. He would welcome a challenge while he is in the hospital setting Past Medical/Surgical History: ESRD via fistula, HTN Current Medications Medications (Trade) Dose Ordered Sig/Nasir Route PRN Reason Start Time Stop Time Status Last Admin Dose Admin Sodium Chloride 1,000 ml @ 1,000 mls/hr ONCE ONCE IV 10/31/24 18:05 10/31/24 19:04 DC 10/31/24 18:34 1,000 MLS/HR Ceftriaxone Sodium/Dextrose 50 ml @ 100 mls/hr ONCE ONCE IV 10/31/24 18:05 10/31/24 18:34 DC 10/31/24 18:34 100 MLS/HR Metronidazole/ Sodium Chloride 100 ml @ 100 mls/hr ONCE STAT IV 10/31/24 18:04 10/31/24 19:03 DC 10/31/24 18:35 100 MLS/HR Ondansetron HCl (Zofran 4mg/2ml vial) 4 mg ONCE ONCE IV 10/31/24 18:10 10/31/24 18:11 DC 10/31/24 18:34 4 MG Morphine Sulfate (morphine inj.) 4 mg ONCE ONCE IV 10/31/24 18:10 10/31/24 18:11 DC 10/31/24 18:33 4 MG Vancomycin HCl 250 ml @ 166 mls/hr ONCE STAT IV 10/31/24 18:12 10/31/24 19:34 DC 10/31/24 19:26 166 MLS/HR Morphine Sulfate (morphine inj.) 4 mg ONCE ONCE IV 10/31/24 20:55 10/31/24 20:58 DC 10/31/24 21:14 4 MG Acetaminophen 100 ml @ 400 mls/hr ONCE ONCE IV 10/31/24 20:55 10/31/24 21:09 DC 10/31/24 21:13 400 MLS/HR Heparin Sodium (Porcine) (heparin, porcine 5000 unit/ ml 1ml vial) 5,000 unit Q12H SQ 11/01/24 08:00 11/04/24 20:01 5,000 UNIT Ondansetron HCl (Zofran 4mg/2ml vial) 4 mg Q6H PRN IV nausea/vomiting 11/01/24 00:00 11/04/24 20:01 4 MG Acetaminophen (Tylenol tablet) 650 mg Q6H PRN PO Fever above 101 11/01/24 00:00 11/01/24 05:09 650 MG Ceftriaxone Sodium 50 ml @ 100 mls/hr DAILY@1800 IV 11/01/24 18:00 11/04/24 15:13 DC 11/03/24 16:15 100 MLS/HR Metronidazole/ Sodium Chloride 100 ml @ 100 mls/hr Q12H IV 11/01/24 08:00 11/04/24 15:13 DC 11/04/24 08:34 100 MLS/HR Hydralazine HCl (Apresoline inj.) 10 mg ONCE ONCE IV 11/01/24 00:15 11/01/24 00:25 DC 11/01/24 00:36 10 MG Hydralazine HCl (Apresoline 10mg tablet) 10 mg Q8H PO 11/01/24 08:00 11/02/24 14:12 DC 11/02/24 07:27 10 MG Diphenhydramine HCl (Benadryl inj.) 25 mg ONCE ONCE IV 11/01/24 04:40 11/01/24 04:41 DC 11/01/24 05:07 25 MG Acetaminophen/ Hydrocodone Bitart ([place] 5/325mg tablet) 1 tab Q4H PRN PO moderate or severe pain 4-10 11/01/24 12:00 11/04/24 17:23 1 TAB Hydralazine HCl (Apresoline tablet) 25 mg Q8H PO 11/02/24 16:00 11/04/24 17:26 25 MG Sevelamer Carbonate (Renvela tablet) 1,600 mg TID@0830,1230,1730 PO 11/02/24 17:30 11/04/24 17:22 1,600 MG Vancomycin HCl 250 ml @ 166 mls/hr ONCE ONCE IV 11/02/24 14:45 11/02/24 16:15 DC 11/02/24 14:59 166 MLS/HR Heparin Sodium (Porcine) (heparin 1,000 units/ml 10ml, porcine inj.) 2,000 units ONCE ONCE IV 11/03/24 08:00 11/03/24 08:01 DC 11/03/24 18:07 2,000 UNITS Heparin Sodium (Porcine) 10 ml @ 0.5 mls/hr ONCE ONCE IV 11/03/24 08:00 11/04/24 04:00 DC 11/03/24 18:08 0.5 MLS/HR Atorvastatin Calcium (Lipitor tablet) 40 mg DAILY PO 11/03/24 08:00 11/04/24 08:34 40 MG Lidocaine (Lidoderm 5% Patch) 1 patch DAILY@1100 PRN TP pain 11/03/24 11:05 11/03/24 14:14 1 PATCH Non-Formulary Medication 1 ONCE ONCE IV 11/03/24 11:50 11/03/24 11:51 DC 11/03/24 11:50 1 Tramadol HCl (Ultram tablet) 50 mg ONCE ONCE PO 11/03/24 20:20 11/03/24 20:25 DC 11/03/24 21:30 50 MG Cyclobenzaprine HCl (Flexeril tablet) 10 mg Q8H PRN PO muscle spasms 11/04/24 11:50 11/04/24 12:20 10 MG Amoxicillin/ Clavulanate Potassium (Augmentin 500/ 125MG TAB) 1 tab BID@0830,1730 PO 11/04/24 17:30 11/04/24 17:23 1 TAB Social History: Rare ETOH Family History: Noncontributory ROS: As in HPI, otherwise negative Objective: Vitals: Afebrile, 68, 14, 163/88, 100% on RA General: A&Ox3, NAD HEENT: NC/AT, normal conjunctiva, no oral lesions CV: Regular Resp: Clear anteriorly Abd: Soft, nontender, nondistended Ext: L hand with 4 visible puncture wounds however they appear to be healing well. He is swollen distal to his loraine wrapping and his fistula is proximal Lines: PIV ok Laboratory Tests 11/04/24 05:16 11/03 MRI 1. Prominent subcutaneous edema, likely cellulitis in the appropriate clinical setting. 2. T2 hyperintense collections interposed between the 2nd and 3rd metacarpals and the flexor tendons, possible fluid collections. Abscesses not excluded. Limited evaluation on noncontrast enhanced exam. 3. Vascular lesion in the palmar, ulnar aspect of the hand. Differential considerations would include vascular malformation or varicosity, suboptimally evaluated without IV contrast. 4. Additional findings as described above Assessment: // Cat Bite // L hand cellulitis, tenosynovitis, abscess due to the above // ESRD on HD // Antibiotic Allergies: PCN caused a reaction in childhood // MRSA Screen: negative Plan: - Continue Vanco - Patient consented to PCN challenge and so Rocephin/Flagyl will be changed to Augmentin. If he can tolerate this without issue, then he will need 3 weeks of therapy - May benefit from washout of abscesses, would reach out to ortho again - Monitor erythema, hand function - Physical therapy - Thank you for the consult, will continue to follow NICOLASA PACK DO Nov 04, 2024 20:30
[2024-11-04 22:00] VITALS: BP 169/92; PULSE 67; RESP 18; TEMP 97.3; O2SAT 97
[2024-11-05] VITALS (12 sets, daily range): BP systolic 101–180; BP diastolic 61–106; PULSE 74–102; RESP 16–20; TEMP 97.1–97.9; O2SAT 90–100
--- NOTE | 2024-11-05 04:14 | RADIOLOGY REPORT ---
CLINICAL INDICATION: cellulitis left hand COMPARISON: MR MRI UPPER EXTREMITY LEFT on DOS: 11/03/24 TECHNIQUE: Multiplanar, multi-sequence MRI of the left hand was performed without and with in travenous contrast. Contrast: 15 mL Clariscan INTERPRETATION: Bones: There is no fracture. There is no marrow replacing lesion to suggest osteomyelitis. No bone marrow edema. Soft tissues: There is a peripherally enhancing fluid collection along the volar surface of the hand between the 2nd and 3rd metacarpal bones which measures 2.5 cm transverse by 1.2 cm AP 0.8 cm in cran iocaudal dimension. The fluid collection is located deep to the flexor retinaculum. There is dorsal soft tissue edema. There is fluid noted in the dorsal hand spanning the 2nd through 4th metacarpals a nd measuring 2.5 x 1.5 x 0.5 cm, deep to the extensor tendons. There is heterogeneous enhancement of the fluid. Superficial to the carpal tunnel, there is a heterogeneously enhancing circumscribed mass which measures 2.3 x 1.8 x 1.1 cm with serpiginous low intensity foci in the mass suggestive of poss ible thrombosed vein or varix. The radial and ulnar collateral ligaments are intact. The flexor a nd extensor tendons are intact. IMPRESSION: 1. 2.5 cm peripherally enhancing fluid collection in the volar surface of the hand between the 2nd an d 3rd metacarpal bones suspicious for abscess. 2. Dorsal soft tissue edema. Additional fluid collection deep to the 2nd through 4th extensor tendon s which could represent additional abscess. 3. 2.3 cm heterogeneous mass along the ulnar and volar aspect of the hand which is suggestive of a va scular mass. 4. No MR evidence of osteomyelitis.
[2024-11-05] MEDS: pantoprazole 40mg Tablet.DR PO SCH (05:21)
[2024-11-05 06:06] LABS: BASOPHILS % (AUTO) 0.6 % (0-1); EOSINOPHILS # (AUTO) 0.3 X10'3 (0-0.9); EOSINOPHILS % (AUTO) 3.6 % (0-6); HEMATOCRIT 34.9 % (42.0-52.0); HEMOGLOBIN 11.9 g/dl (14.0-17.9); LYMPHOCYTES # (AUTO) 0.8 X10'3 (1.1-4.8); LYMPHOCYTES % (AUTO) 10.9 % (21-51); MEAN CORPUSCULAR HEMOGLOBIN 34.1 PG (27.0-31.0); MEAN CORPUSCULAR HGB CONC 34.2 g/dL (33.0-36.5); MEAN CORPUSCULAR VOLUME 99.7 FL (78-98); MEAN PLATELET VOLUME 6.5 FL (7.4-10.4); NEUTROPHILS # (AUTO) 5.5 X10'3 (1.8-7.7); NEUTROPHILS % (AUTO) 71.9 % (42-75); PLATELET COUNT 302 X10'3 (140-440); RED CELL DISTRIBUTION WIDTH 18.1 % (11.5-14.5); WHITE BLOOD COUNT 7.6 X10'3 (4.5-11.0)
[2024-11-05 06:34] LABS: ALANINE AMINOTRANSFERASE 88 U/L (12-78); ALBUMIN 2.7 G/DL (3.4-5.0); ALBUMIN/GLOBULIN RATIO 0.6 (1.1-1.5); ALKALINE PHOSPHATASE 163 IU/L (46-116); ANION GAP 18 (8-16); ASPARTATE AMINO TRANSFERASE 75 U/L (10-37); BILIRUBIN,TOTAL 0.8 MG/DL (0.1-1.0); BLOOD UREA NITROGEN 40 MG/DL (7-18); BUN/CREATININE RATIO 4.9 (10.0-20.0); CALCIUM 9.9 MG/DL (8.5-10.1); CHLORIDE 99 MMOL/L (99-107); CREATININE 8.22 MG/DL (0.60-1.10); GLUCOSE 86 MG/DL (70-104); MAGNESIUM 2.5 MG/DL (1.5-2.4); PHOSPHORUS 5.2 MG/DL (2.3-4.5); POTASSIUM 4.4 MMOL/L (3.5-5.1); SODIUM 139 MMOL/L (135-145); TOTAL CARBON DIOXIDE 21.9 MMOL/L (24-32); TOTAL PROTEIN 7.1 G/DL (6.4-8.2); VANCOMYCIN,RANDOM 15.3 ug/mL (20.0-30.0); eCRCL 10 ML/MIN; eGFR 7 ML/MIN
[2024-11-05] MEDS: EPOETIN ALFA-EPBX 20,000 UNIT/ML 1 ML MDV IV ONE (08:00)
[2024-11-05] MEDS: heparin 1,000unit/ml 10ml vial 10 ML IV ONE (08:00)
[2024-11-05] MEDS ORDERED: albumin (human) 25% 100ml IV 100 ML IV PRN (08:00)
[2024-11-05] MEDS: heparin 1,000 units/ml 10ml inj IV ONE (08:00)
[2024-11-05] MEDS: VANCOMYCIN LEVEL IV ONE (12:10)
--- NOTE | 2024-11-05 13:04 | CONSULTATION REPORT ---
History of Present Illness Providers to CC ~ Reason for Admit\Admit Dx: Cellulitis of hand Refering MD: MEJIA History of Present Illness Orthopedic consultation left hand swelling after a cat bite. History of present illness: 59-year-old male with a swelling to his left hand after cat bite presented to the emergency room cellulitis of the left TM was admitted periodic following dad was requested to evaluate this patient was have found that the patient had swelling in cellulitis without fluctuance in the dorsum of his hand no involvement of his flexor tendon inches no evidence of septic tenosynovitis of the flexor tendons. He was placed in a bulky hand dressing for a uniform compression and encouraged to elevate the hand of the antibiotics and chance to control his cellulitis. This time surgery was not recommended for close observation On today's exam hand had some swelling of the dorsum of his hand he was in an Valdo wrap not a bulky hand dressing hemostasis then he was having slow improvement a progressively worsening aggression. A MRI study of his hand showed the potential for abscess formation and dorsum of his hand unrecognized recommended to be done with IV contrast. IV contrast imaging was done last night revealing 2.5 cm peripherally enhancing fluid collection of the volar surface of the hand between the 2nd and 3rd metacarpal bones suspicious for an abscess additional fluid collection deep to the 2nd through 4th extensor tendons could represent additional abscesses. On clinical examination I still do not appreciate gross flexion-extension and any improvement in erythema and range of motion to his fingers I discussed this case Dr. Hill hand specialist to his encouraged with the MRI report and the need to the antibiotic additional 48 hours or until the patient has progressive swelling and pain. Dr. Hill recommends I&D of the hand only after another 48 hours of conservative care. Assessment cellulitis secondary to a cat bite which at times can be recalcitrant slow to respond antibiotic indication. Potential for progressive development of abscess formation. Plan: Close evaluation of the next 48 hours the progressive symptoms occur there may be some benefit to do and perform an incision and drainage and cultures of his dorsum left hand. Thank you for the consultation Allergies: Coded Allergies: Penicillins (Unverified Allergy, Unknown, 10/31/24) Home Medications Home Medications Active Reported Warfarin Sodium 4 Mg Tablet 1 Tab PO DAILY Warfarin Sodium 1 Mg Tablet Warfarin Sodium 5 Mg Tablet 1 Tab PO DAILY Cordarone (Amiodarone HCl) 200 Mg Tablet Atorvastatin Calcium 40 Mg Tablet 1 Tab PO DAILY Cyclobenzaprine* (Cyclobenzaprine HCl) 10 Mg Tablet 1 Tab PO BID PRN Furosemide 80 Mg Tablet 1 Tab PO QID/4X'SWEEKLY Calcium Acetate 667 Mg Capsule Physical Exam Last Vital Signs Recorded: Temperature: 97.7, Source: Temporal, Heart Rate: 76, Respiratory Rate: 16, BP: 123/79, Pulse Oximetry: 99, Weight: 92.800 Results Diagram Lab Result Diagram: 11/05/24 0544 11/05/24 0544 RENEA WATSON MD Nov 05, 2024 13:04
--- NOTE | 2024-11-05 13:11 | PROGRESS NOTE- Residence ---
Progress Note - Resident Providers to CC Resident Creating Document: DAVID DARBY RES ~ Antibiotic Timeout Antibiotic Ordered?: Yes Subjective Patient seen and examined today. He is comfortably resting in the bed and is getting hemodialysis done today. Denies any new complaints Objective Vital Signs Date Time Temp Pulse Resp B/P (MAP) Pulse Ox O2 Delivery O2 Flow Rate FiO2 11/05/24 08:45 97.7 76 16 123/79 (94) 99 Room Air 11/05/24 08:00 0.0 Result Diagram: 11/05/2444 11/05/24543 General Appearance: Well developed, well nourished. Awake, alert and oriented x4, resting comfortably in bed, in no acute distress. HEENT: Atraumatic, normocephalic, MISA, EOMI. Normal oropharynx, moist oral mucosa. Neck: Trachea midline. Supple, normal ROM. No JVD, bruit, lymphadenopathy or masses, or other lesions. Respiratory: Chest wall is symmetric and without deformity. No signs of respiratory distress. Equal breath sounds bilaterally. No wheeze, rub, Rales or crackles. Cardiac: RRR, vincent systolic murmur more prominent in mitral area, rub or gallop. Normal S1 and S2. GI: No tenderness. Abdomen symmetric, nondistended, soft, normal bowel sounds x4 quadrant normoactive. No guarding, no rebound or rigidity. No hepatosplenomegaly. No masses, no bruit, no flank pain bilaterally. Extremities: Swelling, tenderness, and erythema left hand, small bite chan Skin: Intact, dry, warm, no rashes or petechia. Neuro: Speech is clear, alert and oriented x4. No sensory or motor deficit, DTRs normal. Cranial nerves II to XII intact. Psych: Normal affect, good eye contact, no apparent hallucination, normal speech. AV fistula on left forearm Assessment Assessment This is a 59-year-old male with a history of hypertension and end-stage renal disease on dialysis, presenting to ER with worsening swelling, tenderness, and pain in the left hand following a cat bite. The incident occurred approximately one week ago when he was bitten by his own domestic cat, described as well kept and current on vaccinations. He was initially evaluated in an outpatient setting and prescribed a seven day course of oral doxycycline, which led to partial improvement. However, over the past few days, his symptoms have worsened again, with increased pain, tenderness and swelling. Plan Plan End-stage renal disease on dialysis Hyperphosphatemia Regular dialysis schedule Tuesday, , Tuesday Received hemodialysis on 11/01/24, 11/03/2024 Received IV gadolinium for MRI to rule out left hand abscesses Risk of systemic fibrosis with the IV gadolinium in end-stage renal disease patients. So, hemodialysis today. Will get another hemodialysis tomorrow Today, phos 5.2. Continue Renvela 1600 mg p.o. t.i.d.. Could be changed to calcium acetate at the time of discharge Systolic murmur in mitral area Echo records requested from Dr. Street's office Left hand cellulitis - suspected abscesses Worsening after cat bite Bitten by his own domestic cat one week ago Treated with seven day course of oral doxycycline with initial improvement, now worsening swelling, tenderness, and pain No systemic symptoms at this time Penicillin allergy Admitted for IV antibiotics; given penicillin allergy and need for pasturulla M. coverage, started on IV ceftriaxone and metronidazole Tetanus updated on Tuesday, no further immunization needed 11/02/24-started on vancomycin ID and ortho consulted by hospitalist team for possible tenosynovitis. 11/05/2024: On Augmentin 500/125 mg p.o. b.i.d. and vancomycin per ID recommendations. MRI with IV gadolinium done on 11/04/2024 showed suspicious abscess in the volar surface of the hand between 2nd and 3rd metacarpal bones and also deep to 2nd through 4th extensor tendons. 2.3 cm heterogeneous mass along the ulnar and volar aspect of the hand with a suggestive of a vascular mass. Primary team consulted ortho-Dr. Mcgregor. Hypertension Currently on hydralazine 25 mg p.o. q.8h scheduled Target blood pressure - 120-140/80 to 90 mmHg DVT prophylaxis: Heparin 5000 unit subQ q.12h Code status: Full code David Darby MD Internal Medicine Resident, PGY 2 Attending Note: Date of Service: Nov 05, 2024 Billing Provider: ERIK KRUGER III, MANOJNA RES Nov 05, 2024 13:10
--- NOTE | 2024-11-05 19:39 | PROGRESS NOTE- Residence ---
Progress Note - Resident Providers to CC Resident Creating Document: MARTIR PETERS RES ~ Antibiotic Timeout Antibiotic Ordered?: Yes Subjective Patient seen and examined today. Dialysis done today. Dr. Mcgregor has consulted the patient, recommends elevation of hand and conservative management with antibiotics for the next 48 hours. Given the slow improvement in likelihood of progressively worsening aggression of the abscesses, patient may benefit from I and D and cultures of left hand by Dr. Hill Objective Vital Signs Date Time Temp Pulse Resp B/P (MAP) Pulse Ox O2 Delivery O2 Flow Rate FiO2 11/05/24 17:53 18 11/05/24 16:54 75 11/05/24 08:45 97.7 123/79 (94) 99 Room Air 11/05/24 08:00 0.0 Result Diagram: 11/05/24 0544 11/05/24 0544 General Appearance: Well developed, well nourished. Awake, alert and oriented x4, resting comfortably in bed, in no acute distress. HEENT: Atraumatic, normocephalic, MISA, EOMI. Normal oropharynx, moist oral mucosa. Neck: Trachea midline. Supple, normal ROM. No JVD, bruit, lymphadenopathy or masses, or other lesions. Respiratory: Chest wall is symmetric and without deformity. No signs of respiratory distress. Equal breath sounds bilaterally. No wheeze, rub, Rales or crackles. Cardiac: RRR, no murmur, rub or gallop. Normal S1 and S2. GI: No tenderness. Abdomen symmetric, nondistended, soft, normal bowel sounds x4 quadrant normoactive. No guarding, no rebound or rigidity. No hepatosplenomegaly. No masses, no bruit, no flank pain bilaterally. Extremities: Swelling, tenderness, and erythema of left hand, small bite chan covered in dressing Skin: Intact, dry, warm, no rashes or petechia. Neuro: Speech is clear, alert and oriented x4. No sensory or motor deficit, DTRs normal. Cranial nerves II to XII intact. Psych: Normal affect, good eye contact, no apparent hallucination, normal speech. Assessment Assessment This is a 59-year-old male with a history of hypertension and end-stage renal disease on dialysis, presenting to ER with worsening swelling, tenderness, and pain in the left hand following a cat bite. The incident occurred approximately one week ago when he was bitten by his own domestic cat, described as well kept and current on vaccinations. He was initially evaluated in an outpatient setting and prescribed a seven day course of oral doxycycline, which led to partial improvement. However, over the past few days, his symptoms have worsened again, with increased pain, tenderness and swelling. Plan Plan Worsening Left hand cellulitis after cat bite 2.5 cm volar abscess between the 2nd and 3rd meta carpal joints Failed outpatient antibiotic treatment with doxycycline Tenosynovitis ruled out Bitten by his own domestic cat one week ago Treated with seven day course of oral doxycycline with initial improvement, now worsening swelling, tenderness, and pain No systemic symptoms at this time Currently on vancomycin and Augmentin Tetanus updated on Tuesday, no further immunization needed Tenosynovitis was excluded by Dr. Mcgregor Due to absence of kanavels(signs of tenosynovitis). Continue with Bulky hand compression dressing MRI of left upper extremity without contrast shows T2 hyperintense collections interposed between the 2nd and 3rd metacarpals and the flexor tendons, possible fluid collections. Abscesses not excluded. Limited evaluation on noncontrast enhanced exam. Dr. Mcgregor was consulted. He recommends MRI with gadolinium contrast exclude abscesses. MRI with gadolinium contrast shows 1. 2.5 cm peripherally enhancing fluid collection in the volar surface of the hand between the 2nd and 3rd metacarpal bones suspicious for abscess. 2. Dorsal soft tissue edema. Additional fluid collection deep to the 2nd through 4th extensor tendons which could represent additional abscess. 3. 2.3 cm heterogeneous mass along the ulnar and volar aspect of the hand which is suggestive of a vascular mass. Plan is to perform I and D by Dr. Hill after 48 hours of conservative management End-stage renal disease on HD Hyperphosphatemia Dialysis schedule: Tuesday, , Tuesday Coordinate with Nephrology to ensure dialysis tomorrow on Tuesday Avoid nephrotoxic medication Patient is originally scheduled for dialysis on Tuesday but he will receive dialysis on Tuesday due to contrast administration. Will get another hemodialysis tomorrow. Today, phos 5.2. Continue Renvela 1600 mg p.o. t.i.d.. Could be changed to calcium acetate at the time of discharge Hypertension Continue hydralazine 25 mg 3 times daily Monitor BP Systolic murmur in the mitral area Echocardiogram ordered. Follow up Code status: Full code DVT prophylaxis: Heparin subQ Diet: Renal diet Disposition: Continue medical management including IV antibiotics and hemodialysis, needs to stop Renvela at discharge. Pending I and D by Dr. Sergio Ramos MD Internal Medicine Resident, PGY1 [facility] Date of Service: Nov 05, 2024 Billing Provider: JAMEY NAVARRETE MD Common Visit Codes: [id number] INP/OBS CARE(HIGH) MARTIR PETERS, RES Nov 05, 2024 19:39 JAMEY NAVARRETE MD Nov 08, 2024 23:32
--- NOTE | 2024-11-05 23:30 | PROGRESS NOTE ---
Progress Note ID Providers to CC ~ Progress Note Progress Note: Antibiotic Days: Vanco 5, Augmentin 1 Lines: PIV Micro: 10/31 Blood- ngtd Subjective: Patient's Augmentin challenge was successful. However, his MRI shows abscess tracking to the metacarpals Objective: Vitals: Afebrile, 76, 16, 123/79, 99% on RA General: Alert, NAD CV: Regular Resp: Clear anteriorly Abd: Soft, nontender, nondistended Ext: L hand dressed Lines: PIV ok 11/05 MRI 1. 2.5 cm peripherally enhancing fluid collection in the volar surface of the hand between the 2nd and 3rd metacarpal bones suspicious for abscess. 2. Dorsal soft tissue edema. Additional fluid collection deep to the 2nd through 4th extensor tendons which could represent additional abscess. 3. 2.3 cm heterogeneous mass along the ulnar and volar aspect of the hand which is suggestive of a vascular mass. 4. No MR evidence of osteomyelitis. Assessment: // Cat Bite // L hand cellulitis, tenosynovitis, abscess due to the above. Noted tracking between the metacarpal bones // ESRD on HD // Antibiotic Allergies: PCN caused a reaction in childhood. He was successfully challenged with Augmentin // MRSA Screen: negative Plan: - Continue Vanco - Resume IV therapy due to tracking to metacarpals. Recommend Ceftazidime for ease of dosing with HD - Resume Flagyl thoug this can be oral - May need 6 weeks of therapy - will see if he is washed out - Monitor erythema, hand function - Physical therapy - Will continue to follow NICOLASA PACK DO Nov 05, 2024 23:30
[2024-11-06] VITALS (11 sets, daily range): BP systolic 113–156; BP diastolic 73–99; PULSE 51–92; RESP 16–20; TEMP 97–98.1; O2SAT 95–99
[2024-11-06] MEDS: metroNIDAZOLE 500mg tablet PO SCH (01:59)
[2024-11-06 05:19] LABS: HBSAG SCREEN Negative (Negative)
[2024-11-06] MEDS ORDERED: vancomycin/NS 1 GM ADD-VANTAGE 250 ML X 1 DOSE IV PRN (07:50)
[2024-11-06] MEDS: heparin 1,000 units/ml 10ml inj HE ONE ×2 (09:05)
[2024-11-06] MEDS: normal saline 1000ml 100 ML IV PRN (09:07)
--- NOTE | 2024-11-06 10:55 | PROGRESS NOTE- Residence ---
Progress Note - Resident Providers to CC Resident Creating Document: ZONIA RHOADES, CHERELLE ~ Central Line/PICC still needed: No Del Cid-Non Protocol Del Cid Indications Met/Not Met: F/C Indications Not Met Antibiotic Timeout Antibiotic Ordered?: Yes Subjective Ongoing dialysis today. Plan for I and D Objective Vital Signs Date Time Temp Pulse Resp B/P (MAP) Pulse Ox O2 Delivery O2 Flow Rate FiO2 11/06/24 09:50 88 20 118/90 (99) 98 Room Air 11/06/24 07:50 98.1 11/05/24 08:00 0.0 Result Diagram: 11/05/2444 11/05/24 0544 General Appearance: Well developed, well nourished. Awake, alert and oriented x4, resting comfortably in bed, in no acute distress. HEENT: Atraumatic, normocephalic, MISA, EOMI. Normal oropharynx, moist oral mucosa. Neck: Trachea midline. Supple, normal ROM. No JVD, bruit, lymphadenopathy or masses, or other lesions. Respiratory: Chest wall is symmetric and without deformity. No signs of respiratory distress. Equal breath sounds bilaterally. No wheeze, rub, Rales or crackles. Cardiac: RRR, no murmur, rub or gallop. Normal S1 and S2. GI: No tenderness. Abdomen symmetric, nondistended, soft, normal bowel sounds x4 quadrant normoactive. No guarding, no rebound or rigidity. No hepatosplenomegaly. No masses, no bruit, no flank pain bilaterally. Extremities: Swelling, tenderness, and erythema of left hand, small bite chan covered in dressing Skin: Intact, dry, warm, no rashes or petechia. Neuro: Speech is clear, alert and oriented x4. No sensory or motor deficit, DTRs normal. Cranial nerves II to XII intact. Psych: Normal affect, good eye contact, no apparent hallucination, normal speech. Assessment Assessment This is a 59-year-old male with a history of hypertension and end-stage renal disease on dialysis, presenting to ER with worsening swelling, tenderness, and pain in the left hand following a cat bite. The incident occurred approximately one week ago when he was bitten by his own domestic cat, described as well kept and current on vaccinations. He was initially evaluated in an outpatient setting and prescribed a seven day course of oral doxycycline, which led to partial improvement. However, over the past few days, his symptoms have worsened again, with increased pain, tenderness and swelling. Plan Plan End-stage renal disease on dialysis Hyperphosphatemia Regular dialysis schedule Tuesday, , Tuesday Currently being hemodialysis today Received IV gadolinium for MRI to rule out left hand abscesses Risk of systemic fibrosis with the IV gadolinium in end-stage renal disease patients. So, hemodialysis today. Will get another hemodialysis tomorrow Today, phos 5.2. Continue Renvela 1600 mg p.o. t.i.d.. Could be changed to calcium acetate at the time of discharge Systolic murmur in mitral area Echo records requested from Dr. Street's office Left hand cellulitis - suspected abscesses Worsening after cat bite Plan for I and D Continue Augmentin and vancomycin as per primary team Hypertension Currently on hydralazine 25 mg p.o. q.8h scheduled Target blood pressure - 120-140/80 to 90 mmHg DVT prophylaxis: Heparin 5000 unit subQ q.12h Code status: Full code Zonia Rhoades PGY2, Internal medicine resident Date of Service: Nov 06, 2024 Billing Provider: ERIK KRUGER III, DEEPANJALI, RES Nov 06, 2024 10:55
[2024-11-06] MEDS: NUT.TX.IMP.RENAL FXN,LAC-REDUC (Nepro) 237 ML VANILLA PO SCH (12:30)
[2024-11-06] MEDS: vancomycin/NS 1 GM ADD-VANTAGE 250 ML X 1 DOSE IV ONE (12:50)
[2024-11-06] MEDS: cefTAZidime 1 GM/NS 100ML IVPB 100 ML IV SCH (12:50)
--- NOTE | 2024-11-06 18:38 | CARDIOLOGY REPORT ---
APPROVED REPORT EXAM: Comprehensive 2D, Doppler, and color-flow Echocardiogram. 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 PRIOR ECHOCARDIOGRAM: None. 2D Dimensions RVDd 3.7 cm IVSd 1.2 (0.7-1.1cm) LVDd 5.6 cm PWd 1.2 (0.7-1.1cm) IVSs 1.6 (0.8-1.2cm) LVDs 3.9 (2.5-4.0cm) PWs 1.8 (0.8-1.2cm) LVOT Diameter 2.03 (1.8-2.4cm) LVEF(%) 65.0 (>50%) SV 86.2 ml M-Mode Dimensions Left Atrium(MM) 4.70 (2.5-4.0cm) Aortic Root 4.20 (2.2-3.7cm) Aortic Valve AoV Peak Smith. 166.5 cm/s AoV VTI 22.5 cm AO Peak GR. 11.1 mmHg AO Mean GR. 5 mmHg LVOT VTI 12.18 cm LVOT Peak Smith. 86.3 cm/s NEYDA (VTI) 2.40 cm2 Mitral Valve MV E Velocity 113.9 cm/s MV DECEL TIME 272 ms MV A Velocity 0.8 cm/s MV PHT 58 ms E/A Ratio 142.4 MVA (PHT) 3.82 cm2 MR HXns305.5 cm/sMR PG Iic363.6 mmHg Tricuspid Valve TR P. Velocity 252 cm/s RAP ESTIMATE 5 mmHg TR Peak Gr. 25 mmHg RVSP 30 mmHg LEFT VENTRICLE Normal LV size and function. Mild concentric hypertrophy. LVEF is 65%. RIGHT VENTRICLE RV is normal size and function. RVSP 30 mmHg. ATRIA Left atrium is moderately dilated. The right atrium size is normal. AORTIC VALVE Trileaflet AV appears mildly sclerotic without stenosis. Mild insufficiency. MITRAL VALVE The mitral valve is normal in structure. Mild mitral regurgitation. TRICUSPID VALVE TV appears structurally normal with mild regurgitation. PULMONIC VALVE Pulmonic valve is not well visualized. GREAT VESSELS Aortic root is moderately dilated. IVC is normal in size and collapses greater than 50% with in spiration. PERICARDIUM Normal pericardium. No effusion. Other Information Study Quality: Adequate Conclusion Normal LV size and function. Mild concentric hypertrophy. LVEF is 65%. RV is normal size and function. RVSP 30 mmHg. Left atrium is moderately dilated. Trileaflet AV appears mildly sclerotic without stenosis. Mild insufficiency. The mitral valve is normal in structure. Mild mitral regurgitation. TV appears structurally normal with mild regurgitation. Aortic root is moderately dilated. Normal pericardium. No effusion.
--- NOTE | 2024-11-06 19:32 | PROGRESS NOTE- Residence ---
Progress Note - Resident Providers to CC Resident Creating Document: PETERSMARTIR LEBLANC RES ~ Antibiotic Timeout Antibiotic Ordered?: Yes Subjective Patient was seen and examined at the bedside. Explained to the patient about the need for compliance with antibiotics after hemodialysis. Also explained the patient not to consume alcohol while taking metronidazole. Plan to discharge tomorrow at 9:00 a.m.. Patient mentions that he has a history of AFib and takes warfarin for it and is compliant with Coumadin clinic checks. Objective Vital Signs Date Time Temp Pulse Resp B/P (MAP) Pulse Ox O2 Delivery O2 Flow Rate FiO2 11/06/24 16:15 16 11/06/24 15:14 70 11/06/24 10:20 97.9 113/85 (94) 98 Room Air 11/05/24 08:00 0.0 Result Diagram: 11/05/24 0544 11/05/24 0544 General Appearance: Well developed, well nourished. Awake, alert and oriented x4, resting comfortably in bed, in no acute distress. HEENT: Atraumatic, normocephalic, MISA, EOMI. Normal oropharynx, moist oral mucosa. Neck: Trachea midline. Supple, normal ROM. No JVD, bruit, lymphadenopathy or masses, or other lesions. Respiratory: Chest wall is symmetric and without deformity. No signs of respiratory distress. Equal breath sounds bilaterally. No wheeze, rub, Rales or crackles. Cardiac: RRR, no murmur, rub or gallop. Normal S1 and S2. GI: No tenderness. Abdomen symmetric, nondistended, soft, normal bowel sounds x4 quadrant normoactive. No guarding, no rebound or rigidity. No hepatosplenomegaly. No masses, no bruit, no flank pain bilaterally. Extremities: Swelling, tenderness, and erythema of left hand, small bite chan covered in dressing Skin: Intact, dry, warm, no rashes or petechia. Neuro: Speech is clear, alert and oriented x4. No sensory or motor deficit, DTRs normal. Cranial nerves II to XII intact. Psych: Normal affect, good eye contact, no apparent hallucination, normal speech. Assessment Assessment This is a 59-year-old male with a history of hypertension and end-stage renal disease on dialysis, presenting to ER with worsening swelling, tenderness, and pain in the left hand following a cat bite. The incident occurred approximately one week ago when he was bitten by his own domestic cat, described as well kept and current on vaccinations. He was initially evaluated in an outpatient setting and prescribed a seven day course of oral doxycycline, which led to partial improvement. However, over the past few days, his symptoms have worsened again, with increased pain, tenderness and swelling. Plan Plan Worsening Left hand cellulitis after cat bite 2.5 cm volar abscess between the 2nd and 3rd meta carpal joints Failed outpatient antibiotic treatment with doxycycline Tenosynovitis ruled out Bitten by his own domestic cat one week ago Treated with seven day course of oral doxycycline with initial improvement, now worsening swelling, tenderness, and pain No systemic symptoms at this time Currently on vancomycin and Augmentin Tetanus updated on Tuesday, no further immunization needed Tenosynovitis was excluded by Dr. Mcgregor Due to absence of kanavels(signs of tenosynovitis). Continue with Bulky hand compression dressing MRI of left upper extremity without contrast shows T2 hyperintense collections interposed between the 2nd and 3rd metacarpals and the flexor tendons, possible fluid collections. Abscesses not excluded. Limited evaluation on noncontrast enhanced exam. Dr. Mcgregor was consulted. He recommends MRI with gadolinium contrast exclude abscesses. MRI with gadolinium contrast shows 1. 2.5 cm peripherally enhancing fluid collection in the volar surface of the hand between the 2nd and 3rd metacarpal bones suspicious for abscess. 2. Dorsal soft tissue edema. Additional fluid collection deep to the 2nd through 4th extensor tendons which could represent additional abscess. 3. 2.3 cm heterogeneous mass along the ulnar and volar aspect of the hand which is suggestive of a vascular mass. Plan is to perform I and D if he fails antibiotic management outpatient with the IV antibiotics. 11/06/2024: Plan to discharge tomorrow in the a.m. with IV antibiotics End-stage renal disease on HD Hyperphosphatemia Dialysis schedule: Tuesday, , Tuesday Coordinate with Nephrology to ensure dialysis tomorrow on Tuesday Avoid nephrotoxic medication Patient is originally scheduled for dialysis on Tuesday but he will receive dialysis on Tuesday due to contrast administration. Will get another hemodialysis tomorrow. Today, phos 5.2. Continue Renvela 1600 mg p.o. t.i.d.. Could be changed to calcium acetate at the time of discharge Hypertension Continue hydralazine 25 mg 3 times daily Monitor BP Systolic murmur in the mitral area Echocardiogram ordered. Follow up Atrial fibrillation without RVR Continue Coumadin and amiodarone p.o. daily after discharge Code status: Full code DVT prophylaxis: Heparin subQ Diet: Renal diet Disposition: Continue medical management including IV antibiotics and hemodialysis, needs to stop Renvela at discharge. Discharge tomorrow with IV antibiotic Martir Ramos MD Internal Medicine Resident, PGY1 [facility] Date of Service: Nov 06, 2024 Billing Provider: JAMEY NAVARRETE MD Common Visit Codes: [id number] INP/OBS CARE(HIGH) MARTIR PETERS, RES Nov 06, 2024 19:32 JAMEY NAVARRETE MD Nov 08, 2024 23:33
[2024-11-06] MEDS: amiodarone 200mg tablet PO SCH (20:22)
[2024-11-06 20:44] LABS: INR 1.6 INR; PROTHROMBIN TIME 15.3 SECONDS (9.0-12.0)
[2024-11-06] MEDS: warfarin 5mg tablet PO SCH (21:32)
[2024-11-07 06:00] VITALS: BP 132/88; PULSE 80; RESP 16; TEMP 97.8; O2SAT 98
[2024-11-07 08:00] VITALS: RESP 18; O2SAT 95
[2024-11-07] MEDS ORDERED: METR-159 PO (08:02)
[2024-11-07] MEDS ORDERED: VANC500F2 IV (08:04)
--- NOTE | 2024-11-07 10:44 | PROGRESS NOTE- Residence ---
Progress Note - Resident Providers to CC Resident Creating Document: JUN RHOADES, CHERELLE ~ Central Line/PICC still needed: No Del Cid-Non Protocol Del Cid Indications Met/Not Met: F/C Indications Not Met Antibiotic Timeout Antibiotic Ordered?: Yes Subjective Patient continues to complain of pain in the left hand, reports that one of his fistula site has actually increased in size when compared to prior. There is some swelling in the left hand making it difficult to flex the hand. Objective Vital Signs Date Time Temp Pulse Resp B/P (MAP) Pulse Ox O2 Delivery O2 Flow Rate FiO2 11/07/24 06:00 97.8 80 16 132/88 (103) 98 Room Air 11/05/24 08:00 0.0 Result Diagram: 11/05/2444 11/05/24543 General: Awake and Alert, no acute distress. HEENT: Conjunctiva pink, Sclera clear, Mucus Membranes moist. Resp: Unlabored. Lungs clear to auscultation bilaterally. Heart: Regular Rate and rhythm, normal S1 and S2 without murmur, rub or gallop. Abdomen: Soft and non tender no organomegaly Extremities: Edematous left hand, functional AV fistula on the left forearm Skin: Warm and Dry. Coagulation Studies Laboratory Tests Test 11/06/24 20:26 Prothrombin Time 15.3 SECONDS (9.0-12.0) H INR International Normalized Ratio 1.6 INR Coagulation Comments Assessment Assessment This is a 59-year-old male with a history of hypertension and end-stage renal disease on dialysis, presenting to ER with worsening swelling, tenderness, and pain in the left hand following a cat bite. The incident occurred approximately one week ago when he was bitten by his own domestic cat, described as well kept and current on vaccinations. He was initially evaluated in an outpatient setting and prescribed a seven day course of oral doxycycline, which led to partial improvement. However, over the past few days, his symptoms have worsened again, with increased pain, tenderness and swelling. Plan Plan End-stage renal disease on dialysis Hyperphosphatemia Regular dialysis schedule Tuesday, , Tuesday Today, phos 5.2. Continue Renvela 1600 mg p.o. t.i.d.. Changed to calcium acetate at the time of discharge Outpatient antibiotic therapy with the hemodialysis Nephrology will sign off, patient to follow up with [facility] to continue dialysis. Next session tomorrow Systolic murmur in mitral area Echo records requested from Dr. Street's office Left hand cellulitis - suspected abscesses Worsening after cat bite Continue antibiotics as per ID recommendations Hypertension Currently on hydralazine 25 mg p.o. q.8h scheduled Target blood pressure - 120-140/80 to 90 mmHg DVT prophylaxis: Heparin 5000 unit subQ q.12h Code status: Full code Disposition: Continue management with the patient as per primary care team, plan for discharge today. Outpatient follow up for dialysis. Nephrology will sign off. Jun Rhoades PGY2, Internal medicine resident Date of Service: Nov 07, 2024 Billing Provider: ERIK KRUGER III, DEEPANJALI, RES Nov 07, 2024 10:44
[2024-11-07] MEDS ORDERED: CEFT1VIA IV (10:58)
[2024-11-07 11:52] VITALS: BP 132/86; PULSE 71; RESP 14; TEMP 97.2; O2SAT 96
--- NOTE | 2024-11-07 18:47 | DISCHARGE SUMMARY-Residence ---
Discharge Summary Providers to CC Resident Creating Document: MARTIR PETERS, RES ~ Discharge Summary Admission Diagnosis: Cat bit, wound Hospital Course DATE OF ADMISSION: 10/31/2024 DATE OF DISCHARGE: 11/07/2024 Discharge Diagnosis\Comment: Worsening Left hand cellulitis after cat bite 2.5 cm volar abscess between the 2nd and 3rd meta carpal joints Failed outpatient antibiotic treatment with doxycycline Tenosynovitis ruled out End-stage renal disease on HD Hyperphosphatemia Hypertension Systolic murmur in the mitral area Atrial fibrillation without RVR Operations\Procedures: None Consultants: Dr. Pastrana, Dr. Gresham, Dr. Sarabia Complications: None Condition on DC: Stable New Medications: Ceftazidime Pentahydrate (Ceftazidime) 1 Gram Vial 1 GM IV Q48H for 42 Days, #28 VIAL Metronidazole* (Flagyl*) 500 Mg Tablet 500 MG PO Q8H@0200,1000,1800 for 14 Days, #42 TAB Vancomycin/0.9 % Sod Chloride (Vanco 500 mg/100 ml-0.9% NaCl) 500 Mg/100 Ml Froz.piggy 500 MG IV Q48H for 42 Days, #28 BAG Continued Medications: Amiodarone Hcl (Cordarone) 200 Mg Tablet Atorvastatin Calcium (Atorvastatin Calcium) 40 Mg Tablet 1 TAB PO DAILY Calcium Acetate (Calcium Acetate) 667 Mg Capsule Cyclobenzaprine* (Cyclobenzaprine*) 10 Mg Tablet 1 TAB PO BID PRN for muscle spasm Furosemide (Furosemide) 80 Mg Tablet 1 TAB PO QID/4X'sweekly Warfarin Sodium (Warfarin Sodium) 5 Mg Tablet 1 TAB PO DAILY, TAB 0 Refills Discontinued Medications: Warfarin Sodium (Warfarin Sodium) 1 Mg Tablet Warfarin Sodium (Warfarin Sodium) 4 Mg Tablet 1 TAB PO DAILY Discharge Summary: History of Present Illness This is a 59-year-old male with a history of hypertension and end-stage renal disease on dialysis, presenting to ER with worsening swelling, tenderness, and pain in the affected area following a cat bite. The incident occurred approximately one week ago when he was bitten by his own domestic cat, described as well kept and current on vaccinations. He was initially evaluated in an outpatient setting and prescribed a seven day course of oral doxycycline, which led to partial improvement. However, over the past few days, his symptoms have worsened again, with increased pain, tenderness and swelling. He received a tetanus booster on Tuesday at outpatient clinic. He denies fever, chills, or malaise at this time. He reports unknown allergy to penicillin. Hospital course: Worsening Left hand cellulitis after cat bite. 2.5 cm volar abscess between the 2nd and 3rd meta carpal joints. Failed outpatient antibiotic treatment with doxycycline. Tenosynovitis ruled out. He was Bitten by his own domestic cat one week ago and was Treated with seven day course of oral doxycycline with initial improvement, now worsening swelling, tenderness, and pain . No systemic symptoms at this time. Tetanus updated on Tuesday, no further immunization needed. Tenosynovitis was excluded by orthopedician Due to absence of kanavels(signs of tenosynovitis). Continue with Bulky hand compression dressing. MRI of left upper extremity without contrast shows T2 hyperintense collections interposed between the 2nd and 3rd metacarpals and the flexor tendons, possible fluid collections. Abscesses not excluded. Limited evaluation on noncontrast enhanced exam. Orthopedician was consulted. He recommends MRI with gadolinium contrast exclude abscesses. MRI with gadolinium contrast shows 2.5 cm peripherally enhancing fluid collection in the volar surface of the hand between the 2nd and 3rd metacarpal bones suspicious for abscess. Dorsal soft tissue edema. Additional fluid collection deep to the 2nd through 4th extensor tendons which could represent additional abscess. 2.3 cm heterogeneous mass along the ulnar and volar aspect of the hand which is suggestive of a vascular mass. Plan is to perform I and D if he fails antibiotic management outpatient with the IV antibiotics. End-stage renal disease on HD. Hyperphosphatemia. Dialysis schedule: Tuesday, , Tuesday. Coordinate with Nephrology to ensure dialysis followed by antibiotic administration. Continue Renvela 1600 mg p.o. t.i.d.. Could be changed to calcium acetate at the time of discharge. Hypertension, Continue hydralazine 25 mg 3 times daily. Atrial fibrillation without RVR. continue Coumadin and amiodarone p.o. daily after discharge. Physical exam at discharge: General Appearance: Well developed, well nourished. Awake, alert and oriented x4, resting comfortably in bed, in no acute distress. HEENT: Atraumatic, normocephalic, MISA, EOMI. Normal oropharynx, moist oral mucosa. Neck: Trachea midline. Supple, normal ROM. No JVD, bruit, lymphadenopathy or masses, or other lesions. Respiratory: Chest wall is symmetric and without deformity. No signs of respiratory distress. Equal breath sounds bilaterally. No wheeze, rub, Rales or crackles. Cardiac: RRR, no murmur, rub or gallop. Normal S1 and S2. GI: No tenderness. Abdomen symmetric, nondistended, soft, normal bowel sounds x4 quadrant normoactive. No guarding, no rebound or rigidity. No hepatosplenomegaly. No masses, no bruit, no flank pain bilaterally. Extremities: Swelling, tenderness, and erythema of left hand, small bite chan covered in dressing Skin: Intact, dry, warm, no rashes or petechia. Neuro: Speech is clear, alert and oriented x4. No sensory or motor deficit, DTRs normal. Cranial nerves II to XII intact. Psych: Normal affect, good eye contact, no apparent hallucination, normal speech. Vital Signs Date Time Temp Pulse Resp B/P (MAP) Pulse Ox O2 Delivery O2 Flow Rate FiO2 11/07/24 11:52 97.2 71 14 132/86 (101) 96 Room Air 11/05/24 08:00 0.0 Laboratory Tests Test 11/06/24 04:21 11/06/24 20:26 11/07/24 04:22 Random Vancomycin Level 10.9 ug/mL 24.3 ug/mL Prothrombin Time 15.3 SECONDS INR International Normalized Ratio 1.6 INR Coagulation Comments Thyroid Stimulating Hormone (TSH) 6.42 ulU/ml Imaging: Upper extremity CT: Mild diffuse subcutaneous edema without evidence of abscess within the limitations of this noncontrast study. A 2.1 cm discoidal structure within the hypothenar eminence likely represents a venous varicosity but this is suboptimally evaluated in the absence of intravenous contrast. If clinically indicated, consider repeat CT with contrast or obtain MRI of the area of concern. Upper extremity MRI without contrast: 1. Prominent subcutaneous edema, likely cellulitis in the appropriate clinical setting. 2. T2 hyperintense collections interposed between the 2nd and 3rd metacarpals and the flexor tendons, possible fluid collections. Abscesses not excluded. Limited evaluation on noncontrast enhanced exam. 3. Vascular lesion in the palmar, ulnar aspect of the hand. Differential considerations would include vascular malformation or varicosity, suboptimally evaluated without IV contrast. 4. Additional findings as described above Upper extremity MRI with contrast: 1. 2.5 cm peripherally enhancing fluid collection in the volar surface of the hand between the 2nd and 3rd metacarpal bones suspicious for abscess. 2. Dorsal soft tissue edema. Additional fluid collection deep to the 2nd through 4th extensor tendons which could represent additional abscess. 3. 2.3 cm heterogeneous mass along the ulnar and volar aspect of the hand which is suggestive of a vascular mass. 4. No MR evidence of osteomyelitis. Echocardiogram: Normal LV size and function. Mild concentric hypertrophy. LVEF is 65%. RV is normal size and function. RVSP 30 mmHg. Left atrium is moderately dilated. Trileaflet AV appears mildly sclerotic without stenosis. Mild insufficiency. The mitral valve is normal in structure. Mild mitral regurgitation. TV appears structurally normal with mild regurgitation. Aortic root is moderately dilated. Normal pericardium. No effusion. Discharge instructions: Follow up with your PCP, orthopedic doctor, Infectious diseases Dr. Sarabia And account manager employee benefits in a week. We have prescribed antibiotics to be administered through both IV and oral routes. IV antibiotics vancomycin and ceftazidime will be given after dialysis on every Tuesday, , Tuesday for six weeks and oral antibiotic metronidazole dereck uld be taken thrice daily every day. 500mg vancomycin oon tue, , 1g vancomycin on tuesday. 1g ceftazidime on tue, and 2g ceftazidime on tue. Have a discussion with your digital traffic coordinator about taking amiodarone for atrial fibrillation versus alternative medication as you have slightly elevated TSH levels. Continue anticoagulation with warfarin and maintain compliance with Coumadin clinic checks. Return to the ED if you have worsening pain, swelling, fever. You will need to follow up with orthopedic doctor to have a repeat scan to check if the abscess in your hand has resolved after finishing antibiotic regimen *Problems/Diagnosis: (1) ESRD (end stage renal disease) (2) Cellulitis Status: Acute Total Time Spent on D/C: > 30 Minutes Date of Service: Nov 07, 2024 Billing Provider: JAMEY NAVARRETE MD Common Visit Codes: 52143-ZLR/OBS DISCH DAY >30min MARTIR PETERS, RES Nov 07, 2024 17:43 JAMEY NAVARRETE MD Nov 08, 2024 23:34
== END 2024-11-07 13:18 | disposition home or self-care (01) | DRG 602 ==
LOC: ER 16:40 → ED HOLD 22:51 → SUR 3N 11-01 06:31
PROVIDERS: ADMIT Internal Medicine; ATTEND Internal Medicine
PROC: 5A1D70Z Performance of Urinary Filtration, Intermittent, Less than 6 Hours Per Day (ICD-10-PCS; principal; 2024-11-01)
PROC: 5A1D70Z Performance of Urinary Filtration, Intermittent, Less than 6 Hours Per Day (ICD-10-PCS; 2024-11-03)
PROC: 5A1D70Z Performance of Urinary Filtration, Intermittent, Less than 6 Hours Per Day (ICD-10-PCS; 2024-11-05)
PROC: 5A1D70Z Performance of Urinary Filtration, Intermittent, Less than 6 Hours Per Day (ICD-10-PCS; 2024-11-06)
DX: L03.114 Cellulitis of left upper limb (principal); N18.6 End stage renal disease; I12.0 Hypertensive chronic kidney disease with stage 5 chronic kidney disease or end stage renal disease; L02.512 Cutaneous abscess of left hand; I48.91 Unspecified atrial fibrillation; I25.10 Atherosclerotic heart disease of native coronary artery without angina pectoris; E83.39 Other disorders of phosphorus metabolism; R01.1 Cardiac murmur, unspecified; S61.452A Open bite of left hand, initial encounter; W55.01XA Bitten by cat, initial encounter; Y93.89 Activity, other specified; Y92.89 Other specified places as the place of occurrence of the external cause; Y99.8 Other external cause status; Z88.0 Allergy status to penicillin; Z88.1 Allergy status to other antibiotic agents; Z99.2 Dependence on renal dialysis; I25.2 Old myocardial infarction
CPT/HCPCS: 36415; 73200; 73218; 73219; 80048; 80053; 80202; 83605; 83735; 84100; 84145; 84443; 85007; 85025; 85610; 87040; 87081; 87340; 93306; 96365; 96375; 99285; A4615; A6258; A6446; A6449; E1594; G0257; G0378; J0131; J0360; J0696; J0713; J1200; J1644; J2270; J2405; J3370; J3490; J7030; J7040